=== PATIENT | female | born 1950 | race Two or more races ===

== ENCOUNTER → 2022-03-24 | Outpatient (CLI) | payer BC ==
[2022-03-24 09:22] LABS: Potassium 4.3 mmol/L (3.5-5.1)
[2022-03-24 09:31] LABS: Albumin 3.6 g/dL (3.4-5.0); Bilirubin, Total 0.3 mg/dL (0.2-1.0); Calcium 9.1 mg/dL (8.5-10.1); Total Protein 6.5 g/dL (6.4-8.2)
[2022-03-24 09:49] LABS: Urine Bacteria NONE SEEN /hpf (None Seen); Urine Blood Negative /uL (Negative); Urine Mucus FEW (None Seen); Urine Specific Gravity 1.023 (1.001-1.035); Urine WBC 22 /hpf (0 - 5); Urine WBC Clumps PRESENT /hpf (None Seen)
== END | disposition home or self-care (01) ==
LOC: LAB 08:20
PROVIDERS: ATTEND Internal Medicine
DX: N39.0 Urinary tract infection, site not specified (principal); E11.49 Type 2 diabetes mellitus with other diabetic neurological complication; E11.69 Type 2 diabetes mellitus with other specified complication
CPT/HCPCS: 36415; 80053; 81001; 87086; 87088; 87186

== ENCOUNTER → 2022-05-09 | Outpatient (CLI) | payer BC | END | disposition home or self-care (01) | LOC: LAB 10:26 | PROVIDERS: ATTEND Internal Medicine | DX: E11.69 Type 2 diabetes mellitus with other specified complication (principal); N39.0 Urinary tract infection, site not specified | CPT/HCPCS: 36415; 83036; 87086 ==

== ENCOUNTER → 2022-08-24 | Outpatient (CLI) | payer BC ==
[2022-08-24 08:24] LABS: Basophils # (auto) 0 10 ^3/uL (0-0.2); Basophils % (auto) 0.5 % (0.0-2.0); Eosinophils # (auto) 0.1 10 ^3/uL (0-0.8); Eosinophils % (auto) 1.2 % (0.0-7.0); Hematocrit 40.8 % (36.0-46.0); Hemoglobin 13.7 g/dL (12.2-16.2); Lymphocytes # (auto) 1.4 10 ^3/uL (0.4-5.4); Lymphocytes % (auto) 20.7 % (10.0-50.0); Mean Corpuscular Hemoglobin 30.9 pg (28.0-32.0); Mean Corpuscular Hgb Conc. 33.6 g/dL (32.0-36.0); Mean Corpuscular Volume 91.8 fL (80.0-100.0); Monocytes # (auto) 0.3 10 ^3/uL (0-1.3); Monocytes % (auto) 4.7 % (0.0-12.0); Neutrophils # (auto) 4.9 10 ^3/uL (1.6-8.6); Neutrophils % (auto) 72.9 % (37.0-80.0); Nucleated Red Blood Cells % 0.1 %; Red Blood Cells 4.44 10^6/uL (4.0-5.20); Red Cell Distribution Width 13.5 % (11.8-14.3); White Blood Cell 6.8 10^3/uL (4.4-10.8)
[2022-08-24 09:15] LABS: Urine Bacteria NONE SEEN /hpf (None Seen); Urine Blood Negative /uL (Negative); Urine Specific Gravity 1.013 (1.001-1.035); Urine WBC <1 /hpf (0 - 5)
[2022-08-24 09:35] LABS: Albumin 3.3 g/dL (3.4-5.0); Calcium 8.9 mg/dL (8.5-10.1); Potassium 4.4 mmol/L (3.5-5.1)
[2022-08-24 09:41] LABS: BUN/Creatinine Ratio 25.6; Bilirubin, Total 0.4 mg/dL (0.2-1.0); Total Protein 6.6 g/dL (6.4-8.2)
[2022-08-24 09:43] LABS: Free T4 (Free Thyroxine) 1.22 ng/dL (0.89-1.76)
[2022-08-24 09:44] LABS: Free T3 2.86 pg/mL (2.3-4.2)
== END | disposition home or self-care (01) ==
LOC: LAB 07:59
PROVIDERS: ATTEND Internal Medicine
DX: Z12.11 Encounter for screening for malignant neoplasm of colon (principal); E11.42 Type 2 diabetes mellitus with diabetic polyneuropathy; E78.5 Hyperlipidemia, unspecified; R53.81 Other malaise
CPT/HCPCS: 36415; 80053; 80061; 81001; 82043; 82274; 82306; 83036; 84439; 84443; 84481; 85025; 85652; 87086

== ENCOUNTER → 2022-11-03 | Outpatient (CLI) | payer BC | END | disposition home or self-care (01) | LOC: XYW 07:24 | DX: R07.9 Chest pain, unspecified (principal) | CPT/HCPCS: 93306 ==

== ENCOUNTER → 2022-11-14 | Outpatient (CLI) | payer BC ==
[~2022-11-14] VITALS: Ht 152.4 cm; Wt 68.0 kg
[~2022-11-14] MED LIST: ADENOSINE 57 MG in GIVE UN-DILUTED 0 ML IV STA
[2022-11-14 08:42] VITALS: BP 124/76
== END | disposition home or self-care (01) ==
LOC: XYW 08:07
DX: R07.9 Chest pain, unspecified (principal); R06.02 Shortness of breath; I10 Essential (primary) hypertension; E11.65 Type 2 diabetes mellitus with hyperglycemia; E78.5 Hyperlipidemia, unspecified
CPT/HCPCS: 78452; 93017; A9500; J0153

== ENCOUNTER → 2023-03-14 | Outpatient (CLI) | payer BC ==
[2023-03-14 08:52] LABS: Creatinine, Urine 124.72 mg/dL (30.0-125.0)
[2023-03-14 08:54] LABS: Albumin 4.2 g/dL (3.2-4.8); Alkaline Phosphatase 58 U/L (46-116); Anion Gap 7.1 (5-15); Aspartate Aminotransferase < 8 U/L (13-40); BUN/Creatinine Ratio 18.5 (10.0-20.0); Blood Urea Nitrogen 10 mg/dL (9-23); Calcium 9.6 mg/dL (8.5-10.1); Carbon Dioxide 26.9 mmol/L (20-30); Chloride 108 mmol/L (98-107); Glucose 102 mg/dL (74-106); Potassium 4.4 mmol/L (3.5-5.1); Sodium 142 mmol/L (136-145)
[2023-03-14 08:55] LABS: Bilirubin, Total 0.5 mg/dL (0.2-1.0); Total Protein 6.5 g/dL (5.7-8.2)
[2023-03-14 08:57] LABS: Alanine Aminotransferase < 9 U/L (7-40)
== END | disposition home or self-care (01) ==
LOC: LAB 08:15
PROVIDERS: ATTEND Internal Medicine
DX: E11.9 Type 2 diabetes mellitus without complications (principal); I10 Essential (primary) hypertension
CPT/HCPCS: 36415; 80053; 82043; 82570; 83036

== ENCOUNTER → 2023-04-12 | Outpatient (CLI) | payer BC ==
[2023-04-12 07:59] LABS: Basophils # (auto) 0 10 ^3/uL (0-0.2); Basophils % (auto) 0.8 % (0.0-2.0); Eosinophils # (auto) 0.1 10 ^3/uL (0-0.8); Eosinophils % (auto) 2.7 % (0.0-7.0); Hematocrit 40.4 % (36.0-46.0); Hemoglobin 13.5 g/dL (12.2-16.2); Lymphocytes # (auto) 1.3 10 ^3/uL (0.4-5.4); Lymphocytes % (auto) 25.5 % (10.0-50.0); Mean Corpuscular Hgb Conc. 33.5 g/dL (32.0-36.0); Mean Corpuscular Volume 92.6 fL (80.0-100.0); Monocytes # (auto) 0.3 10 ^3/uL (0-1.3); Monocytes % (auto) 5.6 % (0.0-12.0); Neutrophils # (auto) 3.3 10 ^3/uL (1.6-8.6); Neutrophils % (auto) 65.4 % (37.0-80.0); Red Blood Cells 4.36 10^6/uL (4.0-5.20); Red Cell Distribution Width 13.5 % (11.8-14.3); White Blood Cell 5.1 10^3/uL (4.4-10.8)
[2023-04-12 08:25] LABS: Albumin 4.2 g/dL (3.2-4.8); Alkaline Phosphatase 59 U/L (46-116); Anion Gap 5 (5-15); Aspartate Aminotransferase 14 U/L (13-40); BUN/Creatinine Ratio 12.1 (10.0-20.0); Bilirubin, Total 0.5 mg/dL (0.2-1.0); Blood Urea Nitrogen 7 mg/dL (9-23); Calcium 9.4 mg/dL (8.5-10.1); Carbon Dioxide 29 mmol/L (20-30); Chloride 109 mmol/L (98-107); Glucose 140 mg/dL (74-106); Potassium 4.3 mmol/L (3.5-5.1); Sodium 143 mmol/L (136-145); Total Protein 6.4 g/dL (5.7-8.2)
[2023-04-12 08:34] LABS: Alanine Aminotransferase < 9 U/L (7-40)
[2023-04-12 09:08] LABS: Erythrocyte Sedimentation Rate 7 mm/hr (0-20)
== END | disposition home or self-care (01) ==
LOC: LAB 07:47
PROVIDERS: ATTEND Internal Medicine
DX: I10 Essential (primary) hypertension (principal); R06.09 Other forms of dyspnea; E11.9 Type 2 diabetes mellitus without complications
CPT/HCPCS: 36415; 80053; 83036; 83880; 85025; 85379; 85652

== ENCOUNTER 2023-05-30 09:13 | Day surgery (SDC) | payer BC, OTHER ==
[2023-05-24 11:08] LABS: Basophils # (auto) 0.1 10 ^3/uL (0-0.2); Basophils % (auto) 1.2 % (0.0-2.0); Eosinophils # (auto) 0.1 10 ^3/uL (0-0.8); Eosinophils % (auto) 1.9 % (0.0-7.0); Hematocrit 42.1 % (36.0-46.0); Hemoglobin 13.9 g/dL (12.2-16.2); Lymphocytes # (auto) 1.7 10 ^3/uL (0.4-5.4); Lymphocytes % (auto) 29.8 % (10.0-50.0); Mean Corpuscular Hemoglobin 30.9 pg (28.0-32.0); Mean Corpuscular Hgb Conc. 33.1 g/dL (32.0-36.0); Mean Corpuscular Volume 93.5 fL (80.0-100.0); Monocytes # (auto) 0.3 10 ^3/uL (0-1.3); Monocytes % (auto) 5.8 % (0.0-12.0); Neutrophils # (auto) 3.5 10 ^3/uL (1.6-8.6); Neutrophils % (auto) 61.3 % (37.0-80.0); Nucleated Red Blood Cells % 0.1 %; Red Cell Distribution Width 13.9 % (11.8-14.3); White Blood Cell 5.6 10^3/uL (4.4-10.8)
[2023-05-24 11:16] LABS: Alanine Aminotransferase 11 U/L (7-40); Alkaline Phosphatase 71 U/L (46-116); Anion Gap 6 (5-15); BUN/Creatinine Ratio 16.7 (10.0-20.0); Blood Urea Nitrogen 10 mg/dL (9-23); Calcium 9.5 mg/dL (8.5-10.1); Carbon Dioxide 28 mmol/L (20-30); Chloride 108 mmol/L (98-107); Glucose 174 mg/dL (74-106); Potassium 4.7 mmol/L (3.5-5.1); Sodium 142 mmol/L (136-145)
[2023-05-24 11:17] LABS: Albumin 4.5 g/dL (3.2-4.8); Aspartate Aminotransferase 13 U/L (13-40); Bilirubin, Total 0.5 mg/dL (0.2-1.0); INR 0.99 (0.9-1.15); Partial Thromboplastin Time 28.9 SEC (24.5-34.5); Prothrombin Time 10.4 sec (9.3-11.8); Total Protein 6.9 g/dL (5.7-8.2)
[~2023-05-30] VITALS: Ht 152.4 cm; Wt 76.2 kg
[~2023-05-30 09:13] MED LIST changes: -ADENOSINE 57 MG in GIVE UN-DILUTED 0 ML IV STA; +ASPI1TAB20 PO; +ATOR20TA PO; +CHOLCAP4 PO; +GLYB5TAB9 PO; +LISI2.5T47 PO; +METF-372 PO; +METO-159 PO; +PIOG1TAB37 OR
[2023-05-30] MEDS ORDERED: SODIUM CHLORIDE LOCK 10 ML ONE (09:17)
[2023-05-30] MEDS ORDERED: NALOXONE HCL 0.4 MG/ML VIAL ONE (09:17)
[2023-05-30] MEDS ORDERED: FLUMAZENIL 0.1 MG/ML INJ 10ML MDV IV ONE (09:17)
[2023-05-30] MEDS ORDERED: fentaNYL CITRATE 100 MCG/2 ML VL ONE (09:18)
[2023-05-30] MEDS ORDERED: MIDAZOLAM HCL 5 MG/ML-1ML VIAL ONE (09:18)
[2023-05-30 10:04] VITALS: O2SAT 100
[2023-05-30] MEDS: diphenhdrAMINE HCL 50 MG/1 ML VL ONE ×2 (10:08→10:10)
[2023-05-30 10:25] VITALS: TEMP 97.6
[2023-05-30 11:20] VITALS: BP 124/57; PULSE 93; RESP 12; O2SAT 98
== END 2023-05-30 11:35 | disposition home or self-care (01) ==
LOC: GI 09:13
PROVIDERS: ATTEND Internal Medicine Gastroenterology
DX: K59.00 Constipation, unspecified (principal); K64.8 Other hemorrhoids; D12.0 Benign neoplasm of cecum
CPT/HCPCS: 36415; 45385; 80053; 82962; 85025; 85610; 85730; 88305; J1200; J2250; J3010; J7030

== ENCOUNTER → 2023-06-15 | Outpatient (CLI) | payer BC ==
[2023-06-15 11:34] LABS: Basophils # (auto) 0.1 10 ^3/uL (0-0.2); Basophils % (auto) 1.1 % (0.0-2.0); Eosinophils # (auto) 0.1 10 ^3/uL (0-0.8); Eosinophils % (auto) 1.3 % (0.0-7.0); Hematocrit 40.8 % (36.0-46.0); Hemoglobin 13.5 g/dL (12.2-16.2); Lymphocytes # (auto) 1.9 10 ^3/uL (0.4-5.4); Lymphocytes % (auto) 31.3 % (10.0-50.0); Mean Corpuscular Hemoglobin 31.1 pg (28.0-32.0); Mean Corpuscular Hgb Conc. 33.1 g/dL (32.0-36.0); Monocytes # (auto) 0.3 10 ^3/uL (0-1.3); Monocytes % (auto) 4.8 % (0.0-12.0); Neutrophils # (auto) 3.8 10 ^3/uL (1.6-8.6); Neutrophils % (auto) 61.5 % (37.0-80.0); Red Blood Cells 4.34 10^6/uL (4.0-5.20); Red Cell Distribution Width 13.7 % (11.8-14.3); White Blood Cell 6.2 10^3/uL (4.4-10.8)
[2023-06-15 12:05] LABS: Albumin 4.4 g/dL (3.2-4.8); Alkaline Phosphatase 74 U/L (46-116); Anion Gap 7 (5-15); Aspartate Aminotransferase 12 U/L (13-40); BUN/Creatinine Ratio 15.1 (10.0-20.0); Bilirubin, Total 0.5 mg/dL (0.2-1.0); Blood Urea Nitrogen 8 mg/dL (9-23); Calcium 9.2 mg/dL (8.7-10.4); Carbon Dioxide 27 mmol/L (20-30); Chloride 106 mmol/L (98-107); Glucose 105 mg/dL (74-106); Sodium 140 mmol/L (136-145)
[2023-06-15 12:06] LABS: Alanine Aminotransferase < 9 U/L (7-40); Total Protein 6.8 g/dL (5.7-8.2)
== END | disposition home or self-care (01) ==
LOC: LAB 11:11
PROVIDERS: ATTEND Internal Medicine
DX: R30.0 Dysuria (principal); Z98.890 Other specified postprocedural states
CPT/HCPCS: 36415; 80053; 85025; 87086; 87088; 87186

== ENCOUNTER 2023-09-06 07:55 | Inpatient (IN) | payer BC ==
[2023-09-04 14:38] LABS: Basophils # (auto) 0.1 10 ^3/uL (0-0.2); Eosinophils # (auto) 0.1 10 ^3/uL (0-0.8); Eosinophils % (auto) 1.5 % (0.0-7.0); Hematocrit 39.7 % (36.0-46.0); Hemoglobin 13.3 g/dL (12.2-16.2); Lymphocytes # (auto) 1.8 10 ^3/uL (0.4-5.4); Lymphocytes % (auto) 25.5 % (10.0-50.0); Mean Corpuscular Hgb Conc. 33.5 g/dL (32.0-36.0); Mean Corpuscular Volume 92.5 fL (80.0-100.0); Monocytes # (auto) 0.4 10 ^3/uL (0-1.3); Monocytes % (auto) 6.4 % (0.0-12.0); Neutrophils # (auto) 4.5 10 ^3/uL (1.6-8.6); Neutrophils % (auto) 65.6 % (37.0-80.0); Nucleated Red Blood Cells % 0.1 %; Red Blood Cells 4.29 10^6/uL (4.0-5.20); Red Cell Distribution Width 13.9 % (11.8-14.3); White Blood Cell 6.9 10^3/uL (4.4-10.8)
[2023-09-04 15:05] LABS: Partial Thromboplastin Time 27.8 SEC (24.5-34.5); Prothrombin Time 10.5 sec (9.3-11.8)
[2023-09-04 15:10] LABS: Alanine Aminotransferase 10 U/L (7-40); Albumin 4.3 g/dL (3.2-4.8); Alkaline Phosphatase 73 U/L (46-116); Anion Gap 6 (5-15); Aspartate Aminotransferase 12 U/L (13-40); BUN/Creatinine Ratio 14.1 (10.0-20.0); Bilirubin, Total 0.4 mg/dL (0.2-1.0); Blood Urea Nitrogen 9 mg/dL (9-23); Calcium 9.6 mg/dL (8.5-10.1); Carbon Dioxide 29 mmol/L (20-30); Chloride 108 mmol/L (98-107); Glucose 208 mg/dL (74-106); Potassium 4.1 mmol/L (3.5-5.1); Sodium 143 mmol/L (136-145); Total Protein 6.7 g/dL (5.7-8.2)
[~2023-09-06] VITALS: Ht 152.4 cm; Wt 75.6 kg
[2023-09-06] VITALS (16 sets, daily range): BP systolic 120–147; BP diastolic 63–89; PULSE 87–113; RESP 12–20; TEMP 98–98.2; O2SAT 94–99
[~2023-09-06 07:55] MED LIST changes: -CHOLCAP4 PO; +CINN500T PO; +LISI-275 PO; -LISI2.5T47 PO
[2023-09-06] MEDS: LIDOCAINE 2%HCL (LOCAL ANESTH.) INJ 20ML MDV ONE ×2 (09:08→11:52)
[2023-09-06] MEDS: IODIXANOL 320MG/ML 100ML BTL IV ONE ×4 (09:08→11:51)
[2023-09-06] MEDS: ANGIOMAX 250 MG VIAL IV ONE ×4 (09:10→12:04)
[2023-09-06] MEDS: fentaNYL CITRATE 100 MCG/2 ML VL ONE ×3 (09:10→11:46)
[2023-09-06] MEDS: MIDAZOLAM HCL 2MG/2ML 2ml VIAL (1mg/ml) ONE ×3 (09:11→11:46)
[2023-09-06] MEDS: SODIUM CHL 0.9% 50 ML ONE ×3 (09:11→11:48)
[2023-09-06] MEDS: ONDANSETRON HCL 4 MG/2 ML VIAL ONE ×3 (10:21→12:50)
[2023-09-06] MEDS: CLOPIDOGREL 300 MG TAB ONE ×2 (10:59→11:01)
[2023-09-06] MEDS: NITROGLYCERIN 0.4 MG SL TAB SL ONE (11:25)
[2023-09-06] MEDS: NITROGLYCERIN 0.4 MG SL TAB SL PRN (11:28)
[2023-09-06] MEDS: HYDROmorphone HCL 2 MG/ML VL/or syr ONE (12:49)
[2023-09-06] MEDS ORDERED: NITROGLYCERIN 0.4 MG SL TAB SL PRN (15:15)
[2023-09-06] MEDS ORDERED: MORPHINE SULFATE INJ 2 MG/ml SYRG IV PRN (15:15)
[2023-09-06] MEDS ORDERED: ONDANSETRON HCL 4 MG/2 ML VIAL IV PRN (15:30)
[2023-09-06] MEDS ORDERED: DEXTROSE (50%) 50ML SYRG IV PRN (15:30)
[2023-09-06] MEDS ORDERED: ACETAMINOPHEN 500 MG TAB PO PRN (15:30)
[2023-09-06] MEDS: InsuLIN REG 1unit/0.01ml Soln (100units/ml) SC SCH (17:00)
[2023-09-06] MEDS: ACCU-CHEK COMFORT CURVE STRIP VI SCH (17:10)
[2023-09-06] MEDS: ONDANSETRON HCL 4 MG/2 ML VIAL IV PRN (17:26)
[2023-09-06] MEDS: ATORVASTATIN 20 MG TAB PO SCH (21:44)
[2023-09-06] MEDS: METOPROLOL TARTRATE 25 MG TAB PO SCH (21:45)
[2023-09-07 05:00] VITALS: BP 118/75; PULSE 92; RESP 20; TEMP 97.7; O2SAT 99
[2023-09-07 07:28] LABS: Basophils # (auto) 0 10 ^3/uL (0-0.2); Basophils % (auto) 0.2 % (0.0-2.0); Eosinophils # (auto) 0 10 ^3/uL (0-0.8); Hemoglobin 13.1 g/dL (12.2-16.2); Lymphocytes # (auto) 1.2 10 ^3/uL (0.4-5.4); Lymphocytes % (auto) 9.6 % (10.0-50.0); Mean Corpuscular Hemoglobin 30.3 pg (28.0-32.0); Mean Corpuscular Hgb Conc. 32.8 g/dL (32.0-36.0); Mean Corpuscular Volume 92.2 fL (80.0-100.0); Monocytes # (auto) 0.8 10 ^3/uL (0-1.3); Monocytes % (auto) 6.8 % (0.0-12.0); Neutrophils # (auto) 10.3 10 ^3/uL (1.6-8.6); Neutrophils % (auto) 83.4 % (37.0-80.0); Red Blood Cells 4.34 10^6/uL (4.0-5.20); Red Cell Distribution Width 13.6 % (11.8-14.3); White Blood Cell 12.3 10^3/uL (4.4-10.8)
[2023-09-07 07:36] LABS: Alanine Aminotransferase 28 U/L (7-40); Albumin 4.1 g/dL (3.2-4.8); Alkaline Phosphatase 70 U/L (46-116); Anion Gap 8 (5-15); Aspartate Aminotransferase 246 U/L (13-40); BUN/Creatinine Ratio 22.4 (10.0-20.0); Blood Urea Nitrogen 13 mg/dL (9-23); Calcium 9.3 mg/dL (8.7-10.4); Carbon Dioxide 24 mmol/L (20-30); Chloride 105 mmol/L (98-107); Glucose 227 mg/dL (74-106); Potassium 3.9 mmol/L (3.5-5.1); Sodium 137 mmol/L (136-145); Total Protein 6.3 g/dL (5.7-8.2)
[2023-09-07 07:37] LABS: Bilirubin, Total 0.8 mg/dL (0.2-1.0)
[2023-09-07 07:41] LABS: Urine Bacteria NONE SEEN /hpf (None Seen); Urine Blood Negative /uL (Negative); Urine Clarity Clear (Clear); Urine Color Yellow (Yellow); Urine Mucus FEW (None Seen); Urine Protein, UAD 1+ (Negative); Urine Urobilinogen Normal (Negative); Urine WBC 5 /hpf (0 - 5)
[2023-09-07 07:55] LABS: Urine Specific Gravity > 1.050 (1.001-1.035)
[2023-09-07 08:00] VITALS: BP 122/76; PULSE 106; PULSE 94; PULSE 95; RESP 18; RESP 20; TEMP 97.9; O2SAT 96; O2SAT 98
[2023-09-07] MEDS: CLOPIDOGREL BISULFATE 75 MG TAB PO SCH (09:09)
[2023-09-07] MEDS: ASPirin 81 mg TAB PO SCH (09:09)
[2023-09-07] MEDS: InsuLIN REG 1unit/0.01ml Soln (100units/ml) SC SCH ×2 (11:30→21:26)
[2023-09-07] MEDS ORDERED: DEXTROSE (50%) 50ML SYRG IV PRN (11:30)
[2023-09-07] MEDS: ACCU-CHEK COMFORT CURVE STRIP VI SCH (11:30)
[2023-09-07 13:00] VITALS: BP 102/63; PULSE 81; RESP 18; TEMP 98; O2SAT 96
[2023-09-07 16:44] VITALS: BP 101/62; PULSE 101; RESP 18; TEMP 98.4; O2SAT 96
[2023-09-07] MEDS: KETOROLAC TROMETH 30 MG/ML 1ML VIAL IV ONE (18:41)
[2023-09-07] MEDS: ISOSORBIDE MONONITRATE ER 60 MG TAB PO ONE (18:41)
[2023-09-07 20:00] VITALS: PULSE 105; PULSE 108; RESP 18; O2SAT 92
[2023-09-07 22:01] VITALS: BP 111/64; PULSE 108; RESP 18; TEMP 98.1; O2SAT 92
[2023-09-08 05:23] VITALS: BP 106/58; PULSE 94; RESP 18; TEMP 98.7; O2SAT 95
[2023-09-08 07:06] LABS: Basophils # (auto) 0 10 ^3/uL (0-0.2); Basophils % (auto) 0.3 % (0.0-2.0); Eosinophils # (auto) 0 10 ^3/uL (0-0.8); Eosinophils % (auto) 0.5 % (0.0-7.0); Hematocrit 37.9 % (36.0-46.0); Hemoglobin 12.9 g/dL (12.2-16.2); Lymphocytes # (auto) 1.3 10 ^3/uL (0.4-5.4); Mean Corpuscular Hemoglobin 31.3 pg (28.0-32.0); Mean Corpuscular Volume 91.9 fL (80.0-100.0); Monocytes # (auto) 0.6 10 ^3/uL (0-1.3); Monocytes % (auto) 6.5 % (0.0-12.0); Neutrophils % (auto) 77.7 % (37.0-80.0); Red Blood Cells 4.13 10^6/uL (4.0-5.20); Red Cell Distribution Width 13.4 % (11.8-14.3); White Blood Cell 8.9 10^3/uL (4.4-10.8)
[2023-09-08 07:09] LABS: Chloride 105 mmol/L (98-107); Potassium 3.6 mmol/L (3.5-5.1); Sodium 139 mmol/L (136-145)
[2023-09-08 07:10] LABS: Anion Gap 8 (5-15); Calcium 9.3 mg/dL (8.5-10.1); Carbon Dioxide 26 mmol/L (20-30)
[2023-09-08 07:15] LABS: Glucose 177 mg/dL (74-106)
[2023-09-08 07:16] LABS: BUN/Creatinine Ratio 21.2 (10.0-20.0); Blood Urea Nitrogen 11 mg/dL (9-23)
[2023-09-08 08:00] VITALS: PULSE 96; PULSE 98; RESP 19; O2SAT 95
[2023-09-08 09:00] VITALS: BP 106/79; PULSE 96; RESP 19; TEMP 98.1; O2SAT 95
[2023-09-08] MEDS ORDERED: CLOP75TA70 PO (12:23)
[2023-09-08] MEDS ORDERED: ATOR-47 PO (12:23)
[2023-09-08] MEDS ORDERED: ASPI1TAB20 PO (12:23)
[2023-09-08 14:02] VITALS: BP 111/60; PULSE 98; RESP 20; TEMP 98.1; O2SAT 97
[2023-09-08] MEDS ORDERED: ISOSORBIDE MONONITRATE ER 60 MG TAB PO SCH (22:00)
== END 2023-09-08 15:13 | disposition home or self-care (01) | DRG 251 ==
LOC: CATH 07:55 → TELE 15:05 → TELE-WESTW 17:49
PROVIDERS: ADMIT Internal Medicine; ATTEND Internal Medicine
PROC: 02703ZZ Dilation of Coronary Artery, One Artery, Percutaneous Approach (ICD-10-PCS; principal; 2023-09-06)
PROC: 02C03Z7 Extirpation of Matter from Coronary Artery, One Artery, Orbital Atherectomy Technique, Percutaneous Approach (ICD-10-PCS; 2023-09-06)
PROC: 4A023N7 Measurement of Cardiac Sampling and Pressure, Left Heart, Percutaneous Approach (ICD-10-PCS; 2023-09-06)
PROC: B240ZZ3 Ultrasonography of Single Coronary Artery, Intravascular (ICD-10-PCS; 2023-09-06)
PROC: B211YZZ Fluoroscopy of Multiple Coronary Arteries using Other Contrast (ICD-10-PCS; 2023-09-06)
PROC: B215YZZ Fluoroscopy of Left Heart using Other Contrast (ICD-10-PCS; 2023-09-06)
DX: T82.855A Stenosis of coronary artery stent, initial encounter (principal); I25.10 Atherosclerotic heart disease of native coronary artery without angina pectoris; E78.5 Hyperlipidemia, unspecified; E11.9 Type 2 diabetes mellitus without complications; I10 Essential (primary) hypertension; E66.9 Obesity, unspecified; Y83.8 Other surgical procedures as the cause of abnormal reaction of the patient, or of later complication, without mention of misadventure at the time of the procedure; Z68.32 Body mass index [BMI] 32.0-32.9, adult; Y92.89 Other specified places as the place of occurrence of the external cause
CPT/HCPCS: 36415; 71045; 80048; 80053; 81001; 82962; 83036; 84443; 85025; 85610; 85730; 99152; 99153; C1724; C1769; C1874; G0378; J1815; J1885; J2250; J2405; Q9967

== ENCOUNTER 2023-09-15 12:51 | Inpatient (IN) | payer BC ==
[2023-09-15] VITALS (25 sets, daily range): BP systolic 95–123; BP diastolic 42–72; PULSE 85–113; RESP 14–16; TEMP 98–98.3; O2SAT 94–99
[~2023-09-15] VITALS: Ht 152.4 cm; Wt 66.7 kg
[~2023-09-15 12:51] MED LIST changes: +ATOR-47 PO; -ATOR20TA PO; +CLOP75TA70 PO
[2023-09-15 13:44] LABS: Basophils # (auto) 0.1 10 ^3/uL (0-0.2); Basophils % (auto) 0.8 % (0.0-2.0); Eosinophils # (auto) 0.1 10 ^3/uL (0-0.8); Eosinophils % (auto) 0.8 % (0.0-7.0); Hemoglobin 13.2 g/dL (12.2-16.2); Lymphocytes # (auto) 1.5 10 ^3/uL (0.4-5.4); Lymphocytes % (auto) 20.6 % (10.0-50.0); Mean Corpuscular Hemoglobin 30.9 pg (28.0-32.0); Mean Corpuscular Hgb Conc. 33.1 g/dL (32.0-36.0); Mean Corpuscular Volume 93.4 fL (80.0-100.0); Monocytes # (auto) 0.4 10 ^3/uL (0-1.3); Monocytes % (auto) 5.7 % (0.0-12.0); Neutrophils # (auto) 5.2 10 ^3/uL (1.6-8.6); Neutrophils % (auto) 72.1 % (37.0-80.0); Red Blood Cells 4.28 10^6/uL (4.0-5.20); Red Cell Distribution Width 13.6 % (11.8-14.3); White Blood Cell 7.2 10^3/uL (4.4-10.8)
[2023-09-15 14:05] LABS: Partial Thromboplastin Time 29.1 SEC (24.5-34.5); Prothrombin Time 10.5 sec (9.3-11.8)
[2023-09-15 14:10] LABS: Alkaline Phosphatase 83 U/L (46-116); Anion Gap 8 (5-15); Aspartate Aminotransferase 17 U/L (13-40); BUN/Creatinine Ratio 18.2 (10.0-20.0); Blood Urea Nitrogen 10 mg/dL (9-23); Calcium 9.2 mg/dL (8.7-10.4); Carbon Dioxide 25 mmol/L (20-30); Chloride 104 mmol/L (98-107); Glucose 195 mg/dL (74-106); Magnesium 1.6 mg/dL (1.6-2.6); Potassium 4.1 mmol/L (3.5-5.1); Sodium 137 mmol/L (136-145)
[2023-09-15 14:11] LABS: Albumin 4.4 g/dL (3.2-4.8); Bilirubin, Total 0.3 mg/dL (0.2-1.0); Total Protein 7.1 g/dL (5.7-8.2)
[2023-09-15 14:12] LABS: Alanine Aminotransferase 9 U/L (7-40)
[2023-09-15] MEDS: HEPARIN SODIUM (PORCINE) 5000 UNITS/ML 1ML VIAL IV ONE (14:21)
[2023-09-15] MEDS ORDERED: DEXTROSE (50%) 50ML SYRG IV PRN (14:45)
[2023-09-15] MEDS ORDERED: NITROGLYCERIN 0.4 MG SL TAB SL PRN (14:45)
[2023-09-15] MEDS ORDERED: MORPHINE SULFATE INJ 2 MG/ml SYRG IV PRN (14:45)
[2023-09-15] MEDS: HEPARIN DRIP/D5W 100UNITS/ML 250 ML IV SCH (14:45)
[2023-09-15] MEDS: NITROGLYCERIN 50MG/250ML 250 ML IV ONE (15:06)
[2023-09-15] MEDS: LIDOCAINE 2%HCL (LOCAL ANESTH.) INJ 20ML MDV ONE (16:53)
[2023-09-15] MEDS: IODIXANOL 320MG/ML 100ML BTL IV ONE ×2 (16:53→17:49)
[2023-09-15] MEDS: InsuLIN REG 1unit/0.01ml Soln (100units/ml) SC SCH (17:00)
[2023-09-15] MEDS: ACCU-CHEK COMFORT CURVE STRIP VI SCH (17:00)
[2023-09-15] MEDS: VERAPAMIL 2.5MG/ML INJ 2ML VIAL IV ONE (17:27)
[2023-09-15] MEDS: MIDAZOLAM HCL 2MG/2ML 2ml VIAL (1mg/ml) ONE (17:27)
[2023-09-15] MEDS: fentaNYL CITRATE 100 MCG/2 ML VL ONE (17:27)
[2023-09-15] MEDS: ANGIOMAX 250 MG VIAL IV ONE (17:28)
[2023-09-15] MEDS: SODIUM CHL 0.9% 50 ML ONE (17:28)
[2023-09-15] MEDS ORDERED: PATIENTS OWN MEDICATION (Atorvastatin Calcium 1 TAB) PO SCH (22:00)
[2023-09-15] MEDS: METOPROLOL TARTRATE 25 MG TAB PO SCH (23:09)
[2023-09-16] VITALS (80 sets, daily range): BP systolic 92–142; BP diastolic 36–77; PULSE 87–117; RESP 11–27; TEMP 98.1–98.7; O2SAT 93–98
[2023-09-16 02:03] LABS: INR 1.07 (0.9-1.15); Partial Thromboplastin Time 54.1 SEC (24.5-34.5); Prothrombin Time 11.2 sec (9.3-11.8)
[2023-09-16 02:29] LABS: Albumin 3.8 g/dL (3.2-4.8); Alkaline Phosphatase 67 U/L (46-116); Anion Gap 7 (5-15); Aspartate Aminotransferase 15 U/L (13-40); BUN/Creatinine Ratio 16.3 (10.0-20.0); Bilirubin, Total 0.5 mg/dL (0.2-1.0); Blood Urea Nitrogen 7 mg/dL (9-23); Calcium 8.8 mg/dL (8.7-10.4); Carbon Dioxide 25 mmol/L (20-30); Chloride 107 mmol/L (98-107); Glucose 121 mg/dL (74-106); Potassium 3.7 mmol/L (3.5-5.1); Sodium 139 mmol/L (136-145); Total Protein 6.1 g/dL (5.7-8.2)
[2023-09-16 02:46] LABS: Basophils # (auto) 0 10 ^3/uL (0-0.2); Basophils % (auto) 0.6 % (0.0-2.0); Eosinophils # (auto) 0.1 10 ^3/uL (0-0.8); Eosinophils % (auto) 0.8 % (0.0-7.0); Hematocrit 37.3 % (36.0-46.0); Hemoglobin 12.3 g/dL (12.2-16.2); Lymphocytes # (auto) 1.3 10 ^3/uL (0.4-5.4); Lymphocytes % (auto) 20.4 % (10.0-50.0); Mean Corpuscular Hemoglobin 30.4 pg (28.0-32.0); Mean Corpuscular Hgb Conc. 32.9 g/dL (32.0-36.0); Mean Corpuscular Volume 92.6 fL (80.0-100.0); Monocytes # (auto) 0.4 10 ^3/uL (0-1.3); Monocytes % (auto) 6.5 % (0.0-12.0); Neutrophils # (auto) 4.7 10 ^3/uL (1.6-8.6); Neutrophils % (auto) 71.7 % (37.0-80.0); Red Blood Cells 4.03 10^6/uL (4.0-5.20); Red Cell Distribution Width 13.3 % (11.8-14.3); White Blood Cell 6.6 10^3/uL (4.4-10.8)
[2023-09-16 02:55] LABS: Alanine Aminotransferase < 9 U/L (7-40)
[2023-09-16 08:03] LABS: INR 1.07 (0.9-1.15); Prothrombin Time 11.2 sec (9.3-11.8)
[2023-09-16] MEDS: ASPirin-EC 81 mg tab PO SCH (08:20)
[2023-09-16] MEDS: CLOPIDOGREL BISULFATE 75 MG TAB PO SCH (08:20)
[2023-09-16 14:02] LABS: INR 1.05 (0.9-1.15); Partial Thromboplastin Time 48.1 SEC (24.5-34.5)
[2023-09-16] MEDS: HEPARIN DRIP/D5W 100UNITS/ML 250 ML IV SCH (14:30)
[2023-09-16] MEDS: ISOSORBIDE MONONITRATE 20 MG TAB PO SCH (21:14)
[2023-09-17] VITALS (10 sets, daily range): BP systolic 99–126; BP diastolic 54–69; PULSE 76–105; RESP 18–20; TEMP 97.6–98.6; O2SAT 91–99
[2023-09-17 07:10] LABS: Anion Gap 5 (5-15); Carbon Dioxide 27 mmol/L (20-30); Chloride 107 mmol/L (98-107); Potassium 3.9 mmol/L (3.5-5.1); Sodium 139 mmol/L (136-145)
[2023-09-17 07:11] LABS: Calcium 9.8 mg/dL (8.5-10.1)
[2023-09-17 07:16] LABS: BUN/Creatinine Ratio 15.5 (10.0-20.0); Basophils # (auto) 0 10 ^3/uL (0-0.2); Basophils % (auto) 0.6 % (0.0-2.0); Blood Urea Nitrogen 9 mg/dL (9-23); Eosinophils # (auto) 0.1 10 ^3/uL (0-0.8); Eosinophils % (auto) 1.5 % (0.0-7.0); Glucose 151 mg/dL (74-106); Hematocrit 38.7 % (36.0-46.0); Hemoglobin 12.8 g/dL (12.2-16.2); Lymphocytes # (auto) 1.6 10 ^3/uL (0.4-5.4); Lymphocytes % (auto) 25.1 % (10.0-50.0); Mean Corpuscular Hemoglobin 30.7 pg (28.0-32.0); Mean Corpuscular Volume 92.9 fL (80.0-100.0); Monocytes # (auto) 0.5 10 ^3/uL (0-1.3); Monocytes % (auto) 8.5 % (0.0-12.0); Neutrophils % (auto) 64.3 % (37.0-80.0); Nucleated Red Blood Cells % 0.1 %; Red Blood Cells 4.17 10^6/uL (4.0-5.20); Red Cell Distribution Width 13.7 % (11.8-14.3); White Blood Cell 6.3 10^3/uL (4.4-10.8)
[2023-09-17] MEDS: ENOXAPARIN SOD 40 MG/0.4 ML SYRINGE SC SCH (10:09)
[2023-09-17] MEDS: METOPROLOL TARTRATE 25 MG TAB PO ONE (14:18)
[2023-09-17] MEDS: METOPROLOL TARTRATE 25 MG TAB PO SCH (21:34)
[2023-09-18 05:00] VITALS: BP 117/72; PULSE 97; RESP 18; TEMP 97.6; O2SAT 96
[2023-09-18 08:00] VITALS: PULSE 88; PULSE 97; RESP 17; O2SAT 97
[2023-09-18 09:00] VITALS: BP 107/68; PULSE 88; RESP 17; TEMP 98.2; O2SAT 97
[2023-09-18] MEDS: ISOSORBIDE MONONITRATE ER 60 MG TAB PO SCH (09:28)
[2023-09-18 12:55] VITALS: BP 103/61; PULSE 89; RESP 16; TEMP 98; O2SAT 97
[2023-09-18 15:37] VITALS: BP 102/69; PULSE 86; RESP 16; TEMP 98.2; O2SAT 96
[2023-09-18] MEDS ORDERED: ATORVASTATIN 20 MG TAB PO SCH (22:00)
== END 2023-09-18 16:30 | disposition home or self-care (01) | DRG 280 ==
LOC: ER 12:51 → TELE 14:39 → ICU WEST 19:41 → TELE-CENTR 09-16 18:14
PROVIDERS: ADMIT Nurse Practitioner Acute Care; ATTEND Internal Medicine Geriatric Medicine
PROC: B211YZZ Fluoroscopy of Multiple Coronary Arteries using Other Contrast (ICD-10-PCS; principal; 2023-09-15)
PROC: 4A023N7 Measurement of Cardiac Sampling and Pressure, Left Heart, Percutaneous Approach (ICD-10-PCS; 2023-09-15)
PROC: B54CZZA Ultrasonography of Left Lower Extremity Veins, Guidance (ICD-10-PCS; 2023-09-15)
PROC: 02JA3ZZ Inspection of Heart, Percutaneous Approach (ICD-10-PCS; 2023-09-15)
DX: I25.10 Atherosclerotic heart disease of native coronary artery without angina pectoris (principal); I21.4 Non-ST elevation (NSTEMI) myocardial infarction; I25.42 Coronary artery dissection; I50.41 Acute combined systolic (congestive) and diastolic (congestive) heart failure; E66.9 Obesity, unspecified; E78.5 Hyperlipidemia, unspecified; I11.0 Hypertensive heart disease with heart failure; E11.9 Type 2 diabetes mellitus without complications; Z95.5 Presence of coronary angioplasty implant and graft; Z79.84 Long term (current) use of oral hypoglycemic drugs; Z79.82 Long term (current) use of aspirin; Z79.899 Other long term (current) drug therapy; Z83.3 Family history of diabetes mellitus; Z82.49 Family history of ischemic heart disease and other diseases of the circulatory system; Z68.28 Body mass index [BMI] 28.0-28.9, adult; Y92.89 Other specified places as the place of occurrence of the external cause
CPT/HCPCS: 36415; 71045; 80048; 80053; 82962; 83735; 83880; 84484; 85025; 85610; 85730; 87081; 93005; 93306; 93458; 96365; 96368; 99152; 99291; G0378; J1815; J2250; Q9967

== ENCOUNTER → 2024-01-02 | Outpatient (CLI) | payer BC ==
[~2024-01-02] MED LIST changes: -LISI-275 PO
[2024-01-02 08:05] LABS: Basophils # (auto) 0.1 10 ^3/uL (0-0.2); Eosinophils # (auto) 0.1 10 ^3/uL (0-0.8); Eosinophils % (auto) 1.8 % (0.0-7.0); Hematocrit 41.5 % (36.0-46.0); Hemoglobin 13.6 g/dL (12.2-16.2); Lymphocytes # (auto) 1.7 10 ^3/uL (0.4-5.4); Lymphocytes % (auto) 25.2 % (10.0-50.0); Mean Corpuscular Hemoglobin 28.9 pg (28.0-32.0); Mean Corpuscular Hgb Conc. 32.7 g/dL (32.0-36.0); Mean Corpuscular Volume 88.5 fL (80.0-100.0); Monocytes # (auto) 0.4 10 ^3/uL (0-1.3); Monocytes % (auto) 5.4 % (0.0-12.0); Neutrophils # (auto) 4.4 10 ^3/uL (1.6-8.6); Neutrophils % (auto) 66.6 % (37.0-80.0); Red Blood Cells 4.68 10^6/uL (4.0-5.20); White Blood Cell 6.6 10^3/uL (4.4-10.8)
[2024-01-02 08:55] LABS: Alanine Aminotransferase 10 U/L (7-40); Albumin 4.2 g/dL (3.2-4.8); Alkaline Phosphatase 89 U/L (46-116); Anion Gap 9 (5-15); Aspartate Aminotransferase 9 U/L (13-40); BUN/Creatinine Ratio 13.7 (10.0-20.0); Bilirubin, Total 0.4 mg/dL (0.2-1.0); Blood Urea Nitrogen 7 mg/dL (9-23); Calcium 9.5 mg/dL (8.5-10.1); Carbon Dioxide 25 mmol/L (20-30); Chloride 107 mmol/L (98-107); Cholesterol 132 mg/dL (< 200); Glucose 176 mg/dL (74-106); HDL Cholesterol 46 mg/dL (40-59); LDL Cholesterol 69 mg/dL (< 100); Potassium 3.7 mmol/L (3.5-5.1); Sodium 141 mmol/L (136-145); Total Protein 6.4 g/dL (5.7-8.2); Triglycerides 117 mg/dL (< 150)
== END | disposition home or self-care (01) ==
LOC: LAB 07:38
PROVIDERS: ATTEND Internal Medicine
DX: E11.9 Type 2 diabetes mellitus without complications (principal); I25.10 Atherosclerotic heart disease of native coronary artery without angina pectoris
CPT/HCPCS: 36415; 80053; 80061; 83036; 85025

== ENCOUNTER → 2024-01-22 | Outpatient (CLI) | payer BC | END | disposition home or self-care (01) | LOC: Rad HDHVI 08:46 | PROVIDERS: ATTEND Internal Medicine Cardiovascular Disease | DX: R25.2 Cramp and spasm (principal) | CPT/HCPCS: 93925 ==

== ENCOUNTER → 2024-01-31 | Outpatient (CLI) | payer BC ==
[~2024-01-31] VITALS: Ht 152.4 cm; Wt 64.0 kg
== END | disposition home or self-care (01) ==
LOC: Rad HDHVI 09:05
PROVIDERS: ATTEND Internal Medicine Cardiovascular Disease
DX: I25.110 Atherosclerotic heart disease of native coronary artery with unstable angina pectoris (principal); R07.89 Other chest pain; I10 Essential (primary) hypertension; E78.5 Hyperlipidemia, unspecified; E11.69 Type 2 diabetes mellitus with other specified complication; I25.5 Ischemic cardiomyopathy; R06.02 Shortness of breath; Z82.49 Family history of ischemic heart disease and other diseases of the circulatory system
CPT/HCPCS: 78452; 93017; 96374; A9500

== ENCOUNTER → 2024-02-20 | Outpatient (CLI) | payer BC ==
[2024-02-20 08:21] LABS: Basophils # (auto) 0 10 ^3/uL (0-0.2); Basophils % (auto) 0.7 % (0.0-2.0); Eosinophils # (auto) 0.1 10 ^3/uL (0-0.8); Eosinophils % (auto) 1.5 % (0.0-7.0); Hemoglobin 13.8 g/dL (12.2-16.2); Lymphocytes # (auto) 1.8 10 ^3/uL (0.4-5.4); Lymphocytes % (auto) 26.2 % (10.0-50.0); Mean Corpuscular Hemoglobin 28.1 pg (28.0-32.0); Mean Corpuscular Hgb Conc. 32.8 g/dL (32.0-36.0); Mean Corpuscular Volume 85.6 fL (80.0-100.0); Monocytes # (auto) 0.4 10 ^3/uL (0-1.3); Monocytes % (auto) 5.6 % (0.0-12.0); Neutrophils # (auto) 4.5 10 ^3/uL (1.6-8.6); Red Blood Cells 4.91 10^6/uL (4.0-5.20); Red Cell Distribution Width 15.4 % (11.8-14.3); White Blood Cell 6.8 10^3/uL (4.4-10.8)
== END | disposition home or self-care (01) ==
LOC: LAB 07:48
PROVIDERS: ATTEND Internal Medicine
DX: K63.5 Polyp of colon (principal)
CPT/HCPCS: 36415; 85025

== ENCOUNTER 2024-03-03 09:14 | Emergency (ER) | payer BC ==
[~2024-03-03] VITALS: Ht 152.4 cm; Wt 62.1 kg
[2024-03-03 11:06] VITALS: BP 107/54; TEMP 97.8
[2024-03-03 11:08] VITALS: PULSE 84; RESP 16; O2SAT 97
== END 2024-03-03 10:48 | disposition home or self-care (01) ==
LOC: ER 09:14
DX: S09.90XA Unspecified injury of head, initial encounter (principal); I25.10 Atherosclerotic heart disease of native coronary artery without angina pectoris; E11.9 Type 2 diabetes mellitus without complications; I10 Essential (primary) hypertension; Z90.49 Acquired absence of other specified parts of digestive tract; Z98.51 Tubal ligation status; Z79.84 Long term (current) use of oral hypoglycemic drugs; Z79.899 Other long term (current) drug therapy; W18.39XA Other fall on same level, initial encounter; Y93.89 Activity, other specified; Y92.89 Other specified places as the place of occurrence of the external cause; Y99.8 Other external cause status
CPT/HCPCS: 70450; 70486

== ENCOUNTER → 2024-04-19 | Outpatient (CLI) | payer BC ==
[2024-04-19 08:29] LABS: Basophils # (auto) 0.1 10 ^3/uL (0-0.2); Basophils % (auto) 0.8 % (0.0-2.0); Eosinophils # (auto) 0.1 10 ^3/uL (0-0.8); Eosinophils % (auto) 1.5 % (0.0-7.0); Hematocrit 41.5 % (36.0-46.0); Hemoglobin 13.7 g/dL (12.2-16.2); Lymphocytes # (auto) 1.7 10 ^3/uL (0.4-5.4); Lymphocytes % (auto) 23.3 % (10.0-50.0); Mean Corpuscular Hemoglobin 28.4 pg (28.0-32.0); Mean Corpuscular Hgb Conc. 33.1 g/dL (32.0-36.0); Mean Corpuscular Volume 85.9 fL (80.0-100.0); Monocytes # (auto) 0.4 10 ^3/uL (0-1.3); Neutrophils % (auto) 69.4 % (37.0-80.0); Nucleated Red Blood Cells % 0.1 %; Platelet Count (auto) 228 10^3/uL (140-450); Red Blood Cells 4.84 10^6/uL (4.0-5.20); Red Cell Distribution Width 16.4 % (11.8-14.3); White Blood Cell 7.2 10^3/uL (4.4-10.8)
[2024-04-19 09:25] LABS: Albumin 4.3 g/dL (3.2-4.8); Alkaline Phosphatase 97 U/L (46-116); Anion Gap 8 (5-15); Aspartate Aminotransferase 10 U/L (13-40); BUN/Creatinine Ratio 10.7 (10.0-20.0); Bilirubin, Total 0.6 mg/dL (0.2-1.0); Blood Urea Nitrogen 6 mg/dL (9-23); Carbon Dioxide 28 mmol/L (20-31); Chloride 108 mmol/L (98-107); Glucose 136 mg/dL (74-106); Potassium 3.9 mmol/L (3.5-5.1); Sodium 144 mmol/L (136-145)
[2024-04-19 09:26] LABS: Total Protein 6.7 g/dL (5.7-8.2)
[2024-04-19 09:29] LABS: Alanine Aminotransferase < 9 U/L (7-40)
== END | disposition home or self-care (01) ==
LOC: LAB 07:33
PROVIDERS: ATTEND Specialist
DX: Z01.812 Encounter for preprocedural laboratory examination (principal); K63.5 Polyp of colon
CPT/HCPCS: 36415; 80053; 85025

== ENCOUNTER 2024-10-11 09:11 | Day surgery (SDC) | payer BC ==
[2024-10-08 10:01] LABS: Basophils # (auto) 0.1 10 ^3/uL (0-0.2); Basophils % (auto) 1.3 % (0.0-2.0); Eosinophils # (auto) 0.1 10 ^3/uL (0-0.8); Eosinophils % (auto) 1.7 % (0.0-7.0); Hematocrit 41.7 % (36.0-46.0); Hemoglobin 13.9 g/dL (12.2-16.2); Lymphocytes # (auto) 1.8 10 ^3/uL (0.4-5.4); Lymphocytes % (auto) 26.5 % (10.0-50.0); Mean Corpuscular Hemoglobin 28.9 pg (28.0-32.0); Mean Corpuscular Hgb Conc. 33.2 g/dL (32.0-36.0); Mean Corpuscular Volume 86.9 fL (80.0-100.0); Monocytes # (auto) 0.3 10 ^3/uL (0-1.3); Monocytes % (auto) 4.9 % (0.0-12.0); Neutrophils # (auto) 4.4 10 ^3/uL (1.6-8.6); Neutrophils % (auto) 65.6 % (37.0-80.0); Nucleated Red Blood Cells % 0.1 %; Platelet Count (auto) 227 10^3/uL (140-450); Red Cell Distribution Width 14.9 % (11.8-14.3); White Blood Cell 6.7 10^3/uL (4.4-10.8)
[2024-10-08 10:23] LABS: INR 1.01 (0.9-1.15); Partial Thromboplastin Time 27.6 SEC (24.5-34.5); Prothrombin Time 10.7 sec (9.3-11.8)
[2024-10-08 10:49] LABS: Albumin 4.5 g/dL (3.2-4.8); Alkaline Phosphatase 80 U/L (46-116); Anion Gap 8 (5-15); BUN/Creatinine Ratio 9.6 (10.0-20.0); Bilirubin, Total 0.6 mg/dL (0.2-1.0); Calcium 9.9 mg/dL (8.7-10.4); Carbon Dioxide 29 mmol/L (20-31); Potassium 3.9 mmol/L (3.5-5.1)
[2024-10-08 10:50] LABS: Alanine Aminotransferase < 9 U/L (7-40); Aspartate Aminotransferase 11 U/L (13-40); Blood Urea Nitrogen 5 mg/dL (9-23); Chloride 109 mmol/L (98-107); Glucose 150 mg/dL (74-106); Sodium 146 mmol/L (136-145)
[~2024-10-11] VITALS: Ht 152.4 cm; Wt 57.2 kg
[~2024-10-11 09:11] MED LIST changes: +LISI-275 PO; -PIOG1TAB37 OR
[2024-10-11] MEDS ORDERED: SODIUM CHLORIDE LOCK 0 ML ONE (09:55)
[2024-10-11] MEDS ORDERED: MIDAZOLAM HCL 5 MG/ML-1ML VIAL ONE (09:55)
[2024-10-11] MEDS ORDERED: diphenhdrAMINE HCL 50 MG/1 ML VL ONE (09:56)
[2024-10-11] MEDS ORDERED: fentaNYL CITRATE 100 MCG/2 ML VL ONE (09:56)
[2024-10-11] MEDS ORDERED: GLYCOPYRROLATE 0.2 MG/ML 1ML VIAL ONE (12:02)
[2024-10-11] MEDS ORDERED: ONDANSETRON HCL 4 MG/2 ML VIAL ONE (12:02)
[2024-10-11] MEDS ORDERED: PROPOFOL 10 MG/ML 20 ML IV ONE (12:02)
[2024-10-11] MEDS ORDERED: MIDAZOLAM HCL 2MG/2ML 2ml VIAL (1mg/ml) ONE (12:02)
[2024-10-11 12:49] VITALS: PULSE 96; RESP 13; TEMP 97.9; O2SAT 100
--- NOTE | 2024-10-11 12:55 | DVHOP2 ---
Operative Report DATE OF OPERATION: 10/11/24 PROCEDURE: Colonoscopy with biopsy. PREOPERATIVE INDICATION: The patient is a 73 -year-old female undergoing colonoscopy for surveillance of colon polyps, personal history of cecal tubulovillous adenoma POSTOPERATIVE DIAGNOSES: 1. Patient had a medium size 3-4 cm superficially spreading polypoid growth in the base of the cecum close to the appendiceal orifice, multiple biopsies were obtained; this was not felt to be amenable to endoscopic resection 2. There was a 3-4 mm benign-appearing descending colon polyp that was seen and removed by hot snare polypectomy and the specimen was not retrieved 3. Mild sigmoid diverticular disease 4. Trace internal hemorrhoids otherwise normal examination up to the cecum PROCEDURE PERFORMED BY: Fanta Perez M.D. SCOPE: Olympus videocolonoscope. ASA CLASS: 3 PREOPERATIVE MEDICATIONS: Dr. Carlos Henao PROCEDURE IN DETAIL: After obtaining an informed consent, the patient was placed on left lateral decubitus position. She was then sedated with the above medications. A rectal examination was performed that was normal. The colonoscope was then passed through the anus into the rectosigmoid and through the descending, transverse, and ascending colon up to the cecum with visualization of the appendiceal orifice, base of the cecum and the ileocecal valve. The colonoscope was then withdrawn. In the base of the cecum there was a 3-4 cm superficially spreading polypoid growth This had a broad base and was not felt to be amenable to resection via colonosco pe. Multiple biopsies were obtained No other masses or colitis was noted. Patient had mild sigmoid diverticular disease In the descending colon at 40 cm above the anal verge there was a 3-4 mm benign- appearing polyp This was removed by hot snare polypectomy with the specimen was not retrieved due to suction error On retroflexion and straight on view the patient had trace to 1+ internal hemorrhoids The patient tolerated the procedure well without difficulty. WITHDRAWAL TIME: 8 minutes QUALITY OF THE PREP: [place] Bowel Prep score: 9. COMPLICATIONS : None SPECIMENS: Cecal polypoid mass biopsies DISPOSITION: Stable D/C to home PLAN: 1. Surgical referral for cecal resection 2. Repeat surveillance colonoscopy in 1-2 years after cecal resect 3. Outpatient follow up with me in 2-4 weeks to review results and discuss further management FANTA PEREZ MD Oct 11, 2024 12:55
[2024-10-11] MEDS ORDERED: ACCU-CHEK COMFORT CURVE STRIP VI ONE (13:00)
[2024-10-11 13:30] VITALS: BP 123/64; PULSE 104; RESP 12; O2SAT 98
== END 2024-10-11 13:40 | disposition home or self-care (01) ==
LOC: GI 09:11
PROVIDERS: ATTEND Internal Medicine Gastroenterology
DX: R19.4 Change in bowel habit (principal); D12.0 Benign neoplasm of cecum; K57.30 Diverticulosis of large intestine without perforation or abscess without bleeding; K64.8 Other hemorrhoids; I10 Essential (primary) hypertension; E78.5 Hyperlipidemia, unspecified; E11.42 Type 2 diabetes mellitus with diabetic polyneuropathy; I25.10 Atherosclerotic heart disease of native coronary artery without angina pectoris; Z90.89 Acquired absence of other organs; Z98.51 Tubal ligation status; Z98.890 Other specified postprocedural states; Z79.84 Long term (current) use of oral hypoglycemic drugs; Z79.82 Long term (current) use of aspirin; Z79.899 Other long term (current) drug therapy; Z95.5 Presence of coronary angioplasty implant and graft; Z90.49 Acquired absence of other specified parts of digestive tract
CPT/HCPCS: 36415; 45380; 45385; 80053; 82962; 85025; 85610; 85730; 88305; J2250; J2405; J2704; J7030

== ENCOUNTER 2024-12-04 08:02 | Outpatient (CLI) | payer BC ==
[~2024-12-04] VITALS: Ht 152.4 cm; Wt 58.1 kg
== END 2024-12-04 17:00 | disposition home or self-care (01) ==
LOC: Rad HDHVI 08:02
PROVIDERS: ATTEND Internal Medicine Cardiovascular Disease
DX: I49.1 Atrial premature depolarization (principal); I49.3 Ventricular premature depolarization; R00.0 Tachycardia, unspecified; I13.0 Hypertensive heart and chronic kidney disease with heart failure and stage 1 through stage 4 chronic kidney disease, or unspecified chronic kidney disease; I50.33 Acute on chronic diastolic (congestive) heart failure; N18.9 Chronic kidney disease, unspecified; E11.42 Type 2 diabetes mellitus with diabetic polyneuropathy; E11.22 Type 2 diabetes mellitus with diabetic chronic kidney disease; I25.10 Atherosclerotic heart disease of native coronary artery without angina pectoris; E78.2 Mixed hyperlipidemia; I25.5 Ischemic cardiomyopathy; R07.89 Other chest pain; Z82.49 Family history of ischemic heart disease and other diseases of the circulatory system
CPT/HCPCS: 78452; 93017; A9500; 96374

== ENCOUNTER 2025-01-01 06:28 | Inpatient (IN) | payer BC ==
[2024-12-30 11:21] LABS: Basophils # (auto) 0 10 ^3/uL (0-0.2); Basophils % (auto) 0.5 % (0.0-2.0); Eosinophils # (auto) 0.1 10 ^3/uL (0-0.8); Eosinophils % (auto) 0.9 % (0.0-7.0); Hematocrit 40.8 % (36.0-46.0); Hemoglobin 13.8 g/dL (12.2-16.2); Lymphocytes # (auto) 1.7 10 ^3/uL (0.4-5.4); Mean Corpuscular Hemoglobin 28.8 pg (28.0-32.0); Mean Corpuscular Hgb Conc. 33.7 g/dL (32.0-36.0); Mean Corpuscular Volume 85.5 fL (80.0-100.0); Monocytes # (auto) 0.4 10 ^3/uL (0-1.3); Monocytes % (auto) 5.4 % (0.0-12.0); Neutrophils # (auto) 5.6 10 ^3/uL (1.6-8.6); Neutrophils % (auto) 71.2 % (37.0-80.0); Platelet Count (auto) 202 10^3/uL (140-450); Red Blood Cells 4.78 10^6/uL (4.0-5.20); Red Cell Distribution Width 15.5 % (11.8-14.3); White Blood Cell 7.9 10^3/uL (4.4-10.8)
[2024-12-30 11:24] LABS: Urine Bacteria MANY /hpf (None Seen); Urine Blood Negative /uL (Negative); Urine Clarity Turbid (Clear); Urine Color Yellow (Yellow); Urine Hyaline Cast FEW /lpf (0 - 2); Urine Mucus FEW (None Seen); Urine Protein, UAD TRACE (Negative); Urine Squamous Epithelial Cell FEW /hpf (<5); Urine Urobilinogen Normal (Negative); Urine WBC 131 /HPF (0-5); Urine pH 5.5 (5.0-9.0)
[2024-12-30 11:32] LABS: INR 1.03 (0.9-1.15); Partial Thromboplastin Time 27.3 SEC (24.5-34.5); Prothrombin Time 10.9 sec (9.3-11.8)
[2024-12-30 11:41] LABS: Albumin 4.5 g/dL (3.2-4.8); Alkaline Phosphatase 90 U/L (46-116); Anion Gap 10 (5-15); Aspartate Aminotransferase 13 U/L (<34); BUN/Creatinine Ratio 12.3 (10.0-20.0); Calcium 10.1 mg/dL (8.7-10.4); Carbon Dioxide 28 mmol/L (20-31); Glucose 90 mg/dL (74-106); Potassium 4.2 mmol/L (3.5-5.1)
[2024-12-30 11:42] LABS: Bilirubin, Total 0.6 mg/dL (0.2-1.0)
[2024-12-30 11:48] LABS: Alanine Aminotransferase < 9 U/L (7-40); Blood Urea Nitrogen 7 mg/dL (9-23); Chloride 110 mmol/L (98-107); Sodium 148 mmol/L (136-145)
[~2025-01-01] VITALS: Ht 152.4 cm; Wt 60.5 kg
[~2025-01-01 06:28] MED LIST changes: -ASPI1TAB20 PO; -CINN500T PO; +PANT40TA2 PO; +SITA50TA PO
[2025-01-01] MEDS: BUPIVACAINE 0.25% INJ 50ML VIAL ONE (07:00)
[2025-01-01] MEDS ORDERED: PROPOFOL 10 MG/ML 20 ML IV ONE (07:08)
[2025-01-01] MEDS ORDERED: ROCURONIUM 10MG/ML 10ML VIAL IV ONE (07:08)
[2025-01-01] MEDS ORDERED: GLYCOPYRROLATE 0.2 MG/ML 1ML VIAL ONE (07:08)
[2025-01-01] MEDS ORDERED: ONDANSETRON HCL 4 MG/2 ML VIAL ONE (07:09)
[2025-01-01] MEDS ORDERED: LIDOCAINE 2% (LOCAL ANESTH.) PF 5ml SDV ONE (07:09)
[2025-01-01] MEDS ORDERED: SUGAMMADEX 200mg/2ml Vial (100MG/ML) IV ONE (07:09)
[2025-01-01] MEDS ORDERED: DexAMETHasone SOD PHOS 10MG/1ML VIAL INJ ONE ×2 (07:09→07:11)
[2025-01-01] MEDS ORDERED: KETOROLAC TROMETH 30 MG/ML 1ML VIAL ONE (07:09)
[2025-01-01] MEDS: metroNIDAZOLE 500MG/100ML 100 ML IV ONE (07:09)
[2025-01-01] MEDS ORDERED: EPINEPHrine HCL 1 MG/1 ML AMP ONE (07:11)
[2025-01-01] MEDS: GABAPENTIN 300 MG CAP ONE (07:15)
[2025-01-01] MEDS: CELECOXIB 100 MG CAP ONE (07:15)
[2025-01-01] MEDS: ACETAMINOPHEN IV 100 ML IV ONE (07:16)
[2025-01-01] MEDS: CELECOXIB 100 MG CAP PO ONE (07:42)
[2025-01-01] MEDS: GABAPENTIN 300 MG CAP PO ONE (07:42)
[2025-01-01] MEDS: ACETAMINOPHEN IV 1000 MG/100ML (10MG/ML) IV ONE (07:42)
[2025-01-01] MEDS: ASPirin 325 MG TAB ONE (07:42)
[2025-01-01] MEDS: ASPirin 325 MG TAB PO ONE (07:45)
[2025-01-01] MEDS ORDERED: KETAMINE 50mg/ML 1ml syringe ONE (08:11)
[2025-01-01] MEDS ORDERED: fentaNYL CITRATE 100 MCG/2 ML VL ONE (08:12)
[2025-01-01] MEDS: ceFAZolin 2 GM/D5W50ml 50 ML IV ONE (08:15)
[2025-01-01] MEDS ORDERED: METOPROLOL TARTRATE 1MG/1ML-5ML VIAL IV ONE (08:35)
[2025-01-01] MEDS ORDERED: SODIUM CHLORIDE LOCK 10 ML ONE (08:40)
[2025-01-01] MEDS ORDERED: PHENYLEPHRINE HCL 10 MG/ML VL ONE (08:40)
[2025-01-01] MEDS ORDERED: LABETALOL HCL 5 MG/ML ML 20ML VIAL IV ONE (08:52)
[2025-01-01 10:10] VITALS: O2SAT 100
[2025-01-01] MEDS ORDERED: D5W/SOD CHL 0.45%/KCL 20MEQ 1,000 ML IV SCH (10:15)
[2025-01-01] MEDS ORDERED: fentaNYL CITRATE 100 MCG/2 ML VL IV PRN (10:30)
[2025-01-01] MEDS ORDERED: FLUMAZENIL 0.1 MG/ML INJ 10ML MDV IV PRN (10:30)
[2025-01-01] MEDS ORDERED: ePHEDrine SULFATE 50 MG/ML AMP IV PRN (10:30)
[2025-01-01] MEDS ORDERED: NALOXONE HCL 0.4 MG/ML VIAL IV PRN (10:30)
[2025-01-01] MEDS ORDERED: hydrALAZINE HCL 20 MG/ML VL IV PRN (10:30)
[2025-01-01] MEDS ORDERED: HYDROmorphone HCL 2 MG/ML VL/or syr IV PRN (10:30)
[2025-01-01] MEDS: ONDANSETRON HCL 4 MG/2 ML VIAL ONE (10:38)
[2025-01-01] MEDS: ONDANSETRON HCL 4 MG/2 ML VIAL IV PRN (10:40)
[2025-01-01] MEDS ORDERED: NITROGLYCERIN 0.4 MG SL TAB SL PRN (11:00)
[2025-01-01] MEDS ORDERED: MORPHINE SULFATE INJ 2 MG/ml SYRG IV PRN (11:00)
--- NOTE | 2025-01-01 11:27 | DVHHP2 ---
Review of Systems Allergies: Coded Allergies: Codeine (Unverified Adverse Reaction, Mild, nausea, vomit , 12/30/24) Medications Current Medications Medications Dose Ordered Sig/Carmen Route Start Time Stop Time Status Last Admin Dose Admin Potassium Chloride/Dextrose/ Sod Cl 1,000 ml @ 120 mls/hr Q8H20M IV 01/01/25 10:15 Cefazolin Sodium 50 ml @ 100 mls/hr Q8HR IV 01/01/25 14:00 Metronidazole 100 ml @ 100 mls/hr Q8HR IV 01/01/25 14:00 Hydromorphone HCl 0.5 mg Q2HPRN PRN IV 01/01/25 10:15 Nitroglycerin 0.4 mg Q5MINP PRN SL 01/01/25 11:00 Morphine Sulfate 2 mg Q30M PRN IV 01/01/25 11:00 Exam Vital Signs Vital Signs Date Time Temp Pulse Resp B/P (MAP) Pulse Ox O2 Delivery O2 Flow Rate FiO2 01/01/25 10:10 Mask 7.0 100 01/01/25 10:10 100 01/01/25 06:38 97.5 86 18 130/74 (92) 97.5 Labs/Xrays Labs Test 01/01/25 07:02 12/30/24 10:33 Range/Units POC Glucose 164 H 70-106 mg/dl White Blood Count 7.9 4.4-10.8 10^3/uL Red Blood Count 4.78 4.0-5.20 10^6/uL Hemoglobin 13.8 12.2-16.2 g/dL Hematocrit 40.8 36.0-46.0 % Mean Corpuscular Volume 85.5 80.0-100.0 fL Mean Corpuscular Hemoglobin 28.8 28.0-32.0 pg Mean Corpuscular Hemoglobin Concent 33.7 32.0-36.0 g/dL Red Cell Distribution Width 15.5 H 11.8-14.3 % Platelet Count 202 140-450 10^3/uL Mean Platelet Volume 8.5 6.9-10.8 fL Neutrophils (%) (Auto) 71.2 37.0-80.0 % Lymphocytes (%) (Auto) 22.0 10.0-50.0 % Monocytes (%) (Auto) 5.4 0.0-12.0 % Eosinophils (%) (Auto) 0.9 0.0-7.0 % Basophils (%) (Auto) 0.5 0.0-2.0 % Neutrophils # (Auto) 5.6 1.6-8.6 10 ^3/uL Lymphocytes # (Auto) 1.7 0.4-5.4 10 ^3/uL Monocytes # (Auto) 0.4 0-1.3 10 ^3/uL Eosinophils # (Auto) 0.1 0-0.8 10 ^3/uL Basophils # (Auto) 0 0-0.2 10 ^3/uL Nucleated Red Blood Cells 0.0 % Prothrombin Time 10.9 9.3-11.8 sec Prothrombin Time INR 1.03 0.9-1.15 Activated Partial Thromboplast Time 27.3 24.5-34.5 SEC Urine Color Yellow Yellow Urine Clarity Turbid H Clear Urine pH 5.5 5.0-9.0 Urine Specific [place] 1.020 1.001-1.035 Urine Protein Trace H Negative Urine Ketones Negative Negative Urine Blood Negative Negative /uL Urine Nitrite 1+ H Negative Urine Bilirubin Negative Negative Urine Urobilinogen Normal Negative mg/dL Urine Leukocyte Esterase 3+ Negative /uL Urine RBC 4 0 - 4 /hpf Urine Microscopic WBC 131 H 0-5 /HPF Urine Squamous Epithelial Cells Few <5 /hpf Urine Bacteria Many H None Seen /hpf Urine Hyaline Casts Few 0 - 2 /lpf Urine Mucus Few None Seen Urine Glucose Normal Normal mg/dL Sodium Level 148 H 136-145 mmol/L Potassium Level 4.2 3.5-5.1 mmol/L Chloride Level 110 H 98-107 mmol/L Carbon Dioxide Level 28 20-31 mmol/L Anion Gap 10 5-15 Blood Urea Nitrogen 7 L 9-23 mg/dL Creatinine 0.57 0.550-1.02 mg/dL Glomerular Filtration Rate Calc 96 >90 mL/min BUN/Creatinine Ratio 12.3 10.0-20.0 Serum Glucose 90 74-106 mg/dL Calcium Level 10.1 8.7-10.4 mg/dL Total Bilirubin 0.6 0.2-1.0 mg/dL Aspartate Amino Transferase (AST) 13 <34 U/L Alanine Aminotransferase (ALT) < 9 7-40 U/L Alkaline Phosphatase 90 46-116 U/L Total Protein 7.0 5.7-8.2 g/dL Albumin 4.5 3.2-4.8 g/dL Assessment/Plan Assessment/Plan see dictated note Plan discussed with: Patient My Orders Orders - DANNY SERRANO MD Procedure Category Date Status Time Admit ADMIT 01/01/25 Transmitted 10:47 Oxygen By Nasal RT 01/01/25 Transmitted Cannula 10:47 Nitroglycerin PHA 01/01/25 In Process Sublingual (Ntrostat 11:00 Morphine Sulfate PHA 01/01/25 In Process Injection 11:00 Stat Ekg For Chest NAVNEET 01/01/25 In Process Pain 10:47 Notify Md Of Changes NAVNEET 01/01/25 In Process From Base 10:47 Inset Cutter For NAVNEET 01/01/25 In Process 24 Hours 10:47 Emergency Dysrhythmia NAVNEET 01/01/25 In Process Protocol 10:47 Rhythm Strips Once NAVNEET 01/01/25 In Process Every Shift 10:47 D5 1/2 Ns Potassium PHA 01/01/25 Transmitted 20meq 11:30 Urine Bacterial EMILY 01/01/25 Transmitted Culture 11:23 Ceftriaxone Ivpb PHA 01/02/25 Transmitted Rocephin 09:00 Pantoprazole PHA 01/01/25 Transmitted (Protonix) 11:30 Pantoprazole PHA 01/02/25 Transmitted (Protonix) 10:00 Glucose Blood PHA 01/01/25 Transmitted (Accu-Chek Comfort 12:00 Mild Sliding Scale PHA 01/01/25 Transmitted Npo - Q6hr 12:00 Dextrose 50% Syringe PHA 01/01/25 Transmitted 11:30 Complete Blood Count LAB 01/02/25 Verified 06:00 Comprehensive LAB 01/02/25 Verified Metabolic Panel 06:00 Hemoglobin A1c LAB 01/02/25 Verified 06:00 Chest Portable XY 01/02/25 Transmitted 06:00 Date of Service: Jan 01, 2025 Billing Provider: DANNY SERRANO MD Common Visit Codes: [id number] INP/OBS CARE (HIGH) Secondary Visit Codes: [id number] CARE PLAN 30 MINUTES DANNY SERRANO MD Jan 01, 2025 11:27
[2025-01-01] MEDS ORDERED: DEXTROSE (50%) 50ML SYRG IV PRN (11:30)
[2025-01-01] MEDS: InsuLIN REG 1unit/0.01ml Soln (100units/ml) SC SCH (11:55)
--- NOTE | 2025-01-01 11:57 | DVHHP ---
ADMIT DATE: 01/01/2025 HISTORY OF PRESENT ILLNESS: The patient is a 74-year-old lady who was admitted after she underwent exploratory laparotomy for colon cancer. The patient at this time denies any ____ pain. No chest pain, no shortness of breath, no nausea or vomiting. REVIEW OF SYSTEMS: Review of rest of systems otherwise currently negative. PAST MEDICAL HISTORY: Significant for coronary artery disease, congestive heart failure, diabetes, hypertension, and hyperlipidemia. MEDICATIONS: Lipitor, Plavix, glyburide, lisinopril, metformin, metoprolol, Protonix, and Januvia. ALLERGIES: TO CODEINE. SOCIAL HISTORY: No history of smoking. Lives with family. FAMILY HISTORY: Negative. PHYSICAL EXAMINATION: GENERAL: The patient is awake. VITAL SIGNS: Temperature of 97.5, pulse 86 per minute, blood pressure 130/74. SHEENT: Unremarkable. NECK: No JVD. EXTREMITIES: No pedal edema. LUNGS: Equal bilaterally. CARDIOVASCULAR: S1 and S2 is regular. ABDOMEN: Soft. There is a drain in place. Bowel sounds are inactive. There is an NG tube in place. NEUROLOGIC: Nonfocal. MUSCULOSKELETAL: Normal. ASSESSMENT AND PLAN: * Diabetes mellitus for which the patient is on sliding scale insulin. * Chronic systolic heart failure for which she will be monitored for flare-up of CHF. * Hypertension. * Hyperlipidemia. * UTI for which urine culture will be obtained and she will be placed on IV Rocephin. * Status post exploratory laparotomy for colon cancer for which she will be placed n.p.o. with pain medications and IV fluids. * Advanced care planning: The patient is a Full Code-Time spent was 19 minutes. MD RELL Camacho/CAPO/PHUC TID: [id number] RECEIPT: [id number] [facility]
[2025-01-01] MEDS: ACCU-CHEK COMFORT CURVE STRIP VI SCH (12:00)
[2025-01-01] MEDS: D5W/SOD CHL 0.45%/KCL 20MEQ 1,000 ML IV SCH (13:56)
[2025-01-01] MEDS ORDERED: ceFAZolin 1GM/50ML 50 ML IV SCH (14:00)
[2025-01-01 14:30] VITALS: BP 117/52; PULSE 98; RESP 17; TEMP 97.5; O2SAT 97
[2025-01-01] MEDS: metroNIDAZOLE 500MG/100ML 100 ML IV SCH (15:50)
[2025-01-01 16:02] VITALS: PULSE 98; RESP 17; O2SAT 97
[2025-01-01 17:00] VITALS: BP 132/75; PULSE 77; RESP 17; TEMP 96.9; O2SAT 97
--- NOTE | 2025-01-01 17:40 | DVHOP ---
DATE OF SURGERY: 01/01/2025 PREOPERATIVE DIAGNOSIS: Tubulovillous adenoma in the cecum. 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 SURGEON: Nathan Souza MD MANAGER DATA CENTER: Radames Newton NP ANESTHESIA: General endotracheal. ANESTHESIOLOGIST: Matteo Ruiz MD PROCEDURE: Laparotomy with right colon resection. DESCRIPTION OF PROCEDURE: Under general endotracheal anesthesia with the patient's skin prepped and draped, an incision was made measuring approximately 3 inches in length around the umbilicus in a vertical fashion. The incision was deepened with electrocautery. The peritoneal cavity was entered. The fascia was elevated and digital exploration revealed adhesions between the omentum and the anterior abdominal wall. These were lysed sharply. At this point, the viscera were displaced so as to be able to visualize the tinea of the right colon. This was grabbed with a [place] forceps and placed on tension. The right colon was mobilized by incision along the white line of [place] and the distal ileum was mobilized. The distal ileum was mobilized sufficiently to divide the bowel with a INOCENCIO stapler. The mesentery was divided between clamps and ligated. At this point, the cecum and ascending colon were mobilized toward the midline. The mesentery was divided between clamps. The ascending colon section just underneath the hepatic flexure was transected with a INOCENCIO stapler. Following division of the mesentery, the cecum and ascending colon specimen were taken to a separate station in the operating room and the specimen was opened in order to assure presence of the tumor within the cecum. The inspection visualized the tubulovillous adenoma within the lumen and the specimen was submitted for histopathologic examination. Gloves were changed at this point and the bowel was brought into approximation and the distal ileum was anastomosed to the remaining ascending colon in a [id number] fashion using 3-0 Prolene for the outer layer and 3-0 Monocryl for the inner layer. The edges of the mucosa were swapped with Betadine prior to termination of the anastomosis. The anastomosis was tested for water tightness, which indeed was accomplished by palpation and visual inspection. The patient's mesenteric defect was approximated using 2-0 Monocryl suture. The bowel returned back into its normal anatomical position. The abdomen was profusely irrigated. Irrigant was aspirated and the peritoneal cavity was drained by means of a 10-mm [place]-Cardoso drain, which was exteriorized separately and secured with a 2-0 nylon suture. Following assurance of complete hemostasis and report of an accurate needle and sponge counts, the midline fascia was approximated after approximating the peritoneum with a 2-0 Monocryl suture. The fascia was approximated using #1 double-stranded PDS suture. Subcutaneous tissues were approximated and the skin was approximated using metallic skin eloy. The patient remained in stable condition throughout the procedure, left the operating room following an accurate needle and sponge count. Her family was thoroughly informed in the waiting area. Nathan Souza MD PF/SUB TID: [id number] RECEIPT: [id number]
[2025-01-01] MEDS: HYDROmorphone HCL 2 MG/ML VL/or syr IV PRN (19:46)
[2025-01-01 20:00] VITALS: PULSE 92; RESP 17; O2SAT 94
[2025-01-01 21:00] VITALS: BP 136/84; PULSE 84; RESP 16; TEMP 99.4; O2SAT 94
[2025-01-01] MEDS: PANTOPRAZOLE 40 MG/10 ML VIAL INJ IV ONE (21:23)
[2025-01-02] VITALS (8 sets, daily range): BP systolic 100–142; BP diastolic 47–77; PULSE 77–94; RESP 16–18; TEMP 97.6–98.3; O2SAT 92–97
--- NOTE | 2025-01-02 03:15 | DVH ---
CHEST RADIOGRAPH Indication: chf Technique: Single frontal view of the chest was obtained COMPARISON: XY CHEST PORTABLE on DOS: 09/16/23, XY CHEST PORTABLE on DOS: 09/15/23, XY CHEST PORTABLE on DOS: 09/06/23 FINDINGS: Lines and Tubes: Enteric catheter appears to be looped back upon itself across the midline of the upp er abdomen and terminates within the left upper quadrant, presumably within the gastric lumen. Lungs: Mild diffuse increased of the pulmonary vasculature without evidence of focal consolidation. Pleura: No effusion. No pneumothorax. Cardiomediastinal contours: Cardiomegaly. Bones: Unremarkable IMPRESSION: 1. No acute disease. Mild diffuse increased prominence of the pulmonary vasculature. 2. Enteric catheter as above.
[2025-01-02 06:26] LABS: Basophils # (auto) 0 10 ^3/uL (0-0.2); Basophils % (auto) 0.1 % (0.0-2.0); Eosinophils # (auto) 0 10 ^3/uL (0-0.8); Hematocrit 34.3 % (36.0-46.0); Hemoglobin 11.5 g/dL (12.2-16.2); Lymphocytes # (auto) 0.9 10 ^3/uL (0.4-5.4); Lymphocytes % (auto) 9.7 % (10.0-50.0); Mean Corpuscular Hemoglobin 28.3 pg (28.0-32.0); Mean Corpuscular Hgb Conc. 33.5 g/dL (32.0-36.0); Mean Corpuscular Volume 84.4 fL (80.0-100.0); Monocytes # (auto) 0.8 10 ^3/uL (0-1.3); Monocytes % (auto) 8.3 % (0.0-12.0); Neutrophils # (auto) 7.5 10 ^3/uL (1.6-8.6); Neutrophils % (auto) 81.9 % (37.0-80.0); Platelet Count (auto) 177 10^3/uL (140-450); Red Blood Cells 4.06 10^6/uL (4.0-5.20); Red Cell Distribution Width 14.9 % (11.8-14.3); White Blood Cell 9.2 10^3/uL (4.4-10.8)
[2025-01-02 06:48] LABS: Alanine Aminotransferase < 9 U/L (7-40); Albumin 3.8 g/dL (3.2-4.8); Alkaline Phosphatase 75 U/L (46-116); Anion Gap 10 (5-15); Aspartate Aminotransferase 13 U/L (<34); BUN/Creatinine Ratio 16.4 (10.0-20.0); Bilirubin, Total 0.5 mg/dL (0.2-1.0); Blood Urea Nitrogen 11 mg/dL (9-23); Carbon Dioxide 26 mmol/L (20-31); Chloride 103 mmol/L (98-107); Glucose 258 mg/dL (74-106); Potassium 3.4 mmol/L (3.5-5.1); Sodium 139 mmol/L (136-145); Total Protein 5.8 g/dL (5.7-8.2)
[2025-01-02] MEDS: cefTRIAXone 1GM/50ML D5W 50 ML IV SCH (09:05)
[2025-01-02] MEDS: PANTOPRAZOLE 40 MG/10 ML VIAL INJ IV SCH (09:05)
--- NOTE | 2025-01-02 09:50 | DVHPN2 ---
Progress Note Date Seen: Jan 02, 2025 Medical Necessity Reason Pt with a Central, PICC or Fol: No Subjective Patient reports: No new complaints Review of Systems: HEENT:Normal, CVS:Normal, RESPIRATORY:Normal, GI:Normal, :Normal, MSK:Normal, NEURO:Normal Objective vital signs Vital Sign Date Time Temp Pulse Resp B/P (MAP) Pulse Ox O2 Delivery O2 Flow Rate FiO2 01/02/25 05:00 98.0 88 16 116/77 (90) 94 98.0 01/01/25 20:00 Room Air* 0 21 Total Intake and Output 01/01/25 01/01/25 01/02/25 15:00 23:00 07:00 Intake Total 50 ml 100 ml 100 ml Output Total 1400 ml 670 ml 620 ml Balance -1350 ml -570 ml -520 ml medications Current Medications Medications Dose Ordered Sig/Carmen Route Start Time Stop Time Status Last Admin Dose Admin Metronidazole 100 ml @ 100 mls/hr Q8HR IV 01/01/25 14:00 01/02/25 05:25 100 MLS/HR Hydromorphone HCl 0.5 mg Q2HPRN PRN IV 01/01/25 10:15 01/01/25 19:46 0.5 MG Nitroglycerin 0.4 mg Q5MINP PRN SL 01/01/25 11:00 Morphine Sulfate 2 mg Q30M PRN IV 01/01/25 11:00 Potassium Chloride/Dextrose/ Sod Cl 1,000 ml @ 100 mls/hr Q10H IV 01/01/25 11:30 01/02/25 01:48 100 MLS/HR Ceftriaxone Sodium 50 ml @ 100 mls/hr DAILY@09 IV 01/02/25 09:00 01/02/25 09:05 100 MLS/HR Pantoprazole Sodium 40 mg DAILY IV 01/02/25 10:00 01/02/25 09:05 40 MG Diagnostic Test (Pha) 1 strip Q6HR 01/01/25 12:00 01/02/25 05:21 1 STRIP Insulin Human Regular Q6HR SC 01/01/25 12:00 01/02/25 05:35 6 UNITS Dextrose 50 ml UD PRN IV 01/01/25 11:30 Examination: GENERAL:Normal, HEENT:Normal, NECK:Normal, LUNGS:Normal, CVS:Normal, ABDOMEN:Normal, ABDOMEN:Abnormal (ng tube), MSK:Normal, SKIN:Normal, NEURO:Normal, :Normal laboratory and microbiology Laboratory Tests 01/02/25 04:45 Test 01/02/25 04:45 Range/Units Serum Glucose 258 H 74-106 mg/dL Problem List/Assessment/Plan Problem List/Assessment/Plan * Diabetes mellitus for which the patient is on sliding scale insulin. * Chronic systolic heart failure for which she will be monitored for flare-up of CHF, cardio eval * Hypertension. * Hyperlipidemia. * UTI for which urine culture will be obtained and she will be placed on IV Rocephin. * Status post exploratory laparotomy for colon cancer for which she will be placed n.p.o. with pain medications and IV fluids. * Advanced care planning: The patient is a Full Code-Time spent was 19 minutes. Plan discussed with: Patient, Spouse My Orders My Orders Orders - DANNY SERRANO MD Procedure Category Date Status Time Admit ADMIT 01/01/25 Transmitted 10:47 Oxygen By Nasal RT 01/01/25 Transmitted Cannula 10:47 Nitroglycerin PHA 01/01/25 In Process Sublingual (Ntrostat 11:00 Morphine Sulfate PHA 01/01/25 In Process Injection 11:00 Stat Ekg For Chest NAVNEET 01/01/25 In Process Pain 10:47 Notify Md Of Changes NAVNEET 01/01/25 In Process From Base 10:47 Anodizer For NAVNEET 01/01/25 In Process 24 Hours 10:47 Emergency Dysrhythmia NAVNEET 01/01/25 In Process Protocol 10:47 Rhythm Strips Once NAVNEET 01/01/25 In Process Every Shift 10:47 D5w/Sod Chl 0.45%/Kcl PHA 01/01/25 In Process 20meq 11:30 Urine Bacterial EMILY 01/01/25 Logged Culture 11:23 Ceftriaxone 1gm/50ml PHA 01/02/25 In Process D5w (Rocephin) 09:00 Pantoprazole PHA 01/02/25 In Process (Protonix) 10:00 Glucose Blood PHA 01/01/25 In Process (Accu-Chek Comfort 12:00 Insulin R (Human) PHA 01/01/25 In Process (Insulin R) 12:00 Dextrose 50% Syringe PHA 01/01/25 In Process 11:30 Chest Portable XY 01/02/25 Resulted 06:00 * Cardiology Consult CONS 01/02/25 Transmitted 09:46 NS PHA 01/02/25 Transmitted 10:00 Potassium Chl Marcus PHA 01/02/25 Transmitted KCL 10:00 Pt Request For Service PT 01/02/25 Transmitted 09:46 Basic Metabolic Panel LAB 01/03/25 Verified 06:00 Complete Blood Count LAB 01/03/25 Verified 06:00 Magnesium LAB 01/03/25 Verified 05:00 Date of Service: Jan 02, 2025 Billing Provider: DANNY SERRANO MD Common Visit Codes: [id number] INP/OBS CARE(HIGH) Secondary Visit Codes: [id number] CARE PLAN 30 MINUTES DANNY SERRANO MD Jan 02, 2025 09:50
[2025-01-02] MEDS ORDERED: POTASSIUM CHL 20MEQ/100ML 100 ML IV SCH (11:00)
--- NOTE | 2025-01-02 11:02 | DVHPN2 ---
Progress Note - Dictate Date Seen: Jan 01, 2025 Medical Necessity Reason Pt with a Central, PICC or Fol: No Subjective PT S/P 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 NO COMPLICATION HYPONATREMIA HX OF CAD S/P PTCA STENT OF LAD STENT THROMBOSIS OF LAD WITH FAILED REVASCULARIZATION ECHO EF 60% DIABETES VASCULOPATHY vital signs Vital Sign Date Time Temp Pulse Resp B/P (MAP) Pulse Ox O2 Delivery O2 Flow Rate FiO2 01/02/25 09:00 98.3 77 16 100/47 (64) 95 98.3 01/01/25 20:00 Room Air* 0 21 Total Intake and Output 01/01/25 01/01/25 01/02/25 15:00 23:00 07:00 Intake Total 50 ml 100 ml 100 ml Output Total 1400 ml 670 ml 620 ml Balance -1350 ml -570 ml -520 ml medications Current Medications Medications Dose Ordered Sig/Carmen Route Start Time Stop Time Status Last Admin Dose Admin Metronidazole 100 ml @ 100 mls/hr Q8HR IV 01/01/25 14:00 01/02/25 05:25 100 MLS/HR Hydromorphone HCl 0.5 mg Q2HPRN PRN IV 01/01/25 10:15 01/01/25 19:46 0.5 MG Nitroglycerin 0.4 mg Q5MINP PRN SL 01/01/25 11:00 Morphine Sulfate 2 mg Q30M PRN IV 01/01/25 11:00 Ceftriaxone Sodium 50 ml @ 100 mls/hr DAILY@09 IV 01/02/25 09:00 01/02/25 09:05 100 MLS/HR Pantoprazole Sodium 40 mg DAILY IV 01/02/25 10:00 01/02/25 09:05 40 MG Diagnostic Test (Pha) 1 strip Q6HR 01/01/25 12:00 01/02/25 05:21 1 STRIP Insulin Human Regular Q6HR SC 01/01/25 12:00 01/02/25 05:35 6 UNITS Dextrose 50 ml UD PRN IV 01/01/25 11:30 Sodium Chloride 1,000 ml @ 75 mls/hr [id number] IV 01/02/25 10:00 UNV laboratory and microbiology Laboratory Tests 01/02/25 04:45 Test 01/02/25 04:45 Range/Units Serum Glucose 258 H 74-106 mg/dL Problem List /P 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 NO COMPLICATION HYPONATREMIA HX OF CAD S/P PTCA STENT OF LAD STENT THROMBOSIS OF LAD WITH FAILED REVASCULARIZATION ECHO EF 60% DIABETES VASCULOPATHY Assessment/Plan CARDIAC STATUS STABLE CORRECT HYPOKALEMIA Plan discussed with: Patient LIYA HOPSON MD Jan 02, 2025 11:02
[2025-01-02] MEDS: SODIUM CHLORIDE 0.9% 1,000 ML IV SCH (11:31)
[2025-01-02] MEDS: POTASSIUM CHLORIDE 40 MEQ, LIDOCAINE 1% (LOCAL ANESTH.) 4 ML in SODIUM CHL 0.9% 250 ML IV ONE (11:31)
--- NOTE | 2025-01-02 21:04 | DVH ---
CHEST RADIOGRAPH Indication: NG tube placement verification, SOB Technique: Single frontal view of the chest was obtained Comparison: XY CHEST PORTABLE on DOS: 01/02/25, XY CHEST PORTABLE on DOS: 09/16/23, XY CHEST PORTABLE on DOS: 09/15/23, XY CHEST PORTABLE on DOS: 09/06/23 FINDINGS/IMPRESSION: Enteric tube appears looped within the left upper quadrant, presumably in the region of the stomach. The lungs are clear. Unchanged cardiomediastinal silhouette. No pleural effusion or pneumothorax. Unchanged osseous structures.
[2025-01-03] VITALS (7 sets, daily range): BP systolic 124–146; BP diastolic 63–82; PULSE 89–94; RESP 16–20; TEMP 97.5–98.4; O2SAT 92–97
--- NOTE | 2025-01-03 00:52 | DVH ---
EXAM: XY CHEST XRAY 1 VIEW CLINICAL HISTORY: NGT Placement Verification TECHNIQUE: Single AP view of the chest WID: COMPARISON: XY CHEST XRAY 1 VIEW on DOS: 01/02/25 FINDINGS: Lines and tubes: NG tube in place with the tip projecting over the distal body of the stomach. Cholec ystectomy clips are seen. Chest: The heart size and pulmonary vasculature is within normal limits. Linear bibasilar opacities, greater on the left. No pneumothorax or pleural effusion. The osseous structures are grossly intact. Multilevel thoracic spondylosis. Mild degenerative change of the bilateral shoulders. IMPRESSION: NG tube in place with the tip projecting over the distal body of the stomach.
[2025-01-03 06:05] LABS: Basophils # (auto) 0 10 ^3/uL (0-0.2); Basophils % (auto) 0.3 % (0.0-2.0); Eosinophils # (auto) 0 10 ^3/uL (0-0.8); Eosinophils % (auto) 0.3 % (0.0-7.0); Hematocrit 35.6 % (36.0-46.0); Hemoglobin 11.5 g/dL (12.2-16.2); Lymphocytes # (auto) 1.3 10 ^3/uL (0.4-5.4); Mean Corpuscular Hemoglobin 27.7 pg (28.0-32.0); Mean Corpuscular Hgb Conc. 32.4 g/dL (32.0-36.0); Mean Corpuscular Volume 85.5 fL (80.0-100.0); Monocytes # (auto) 0.4 10 ^3/uL (0-1.3); Monocytes % (auto) 5.2 % (0.0-12.0); Neutrophils # (auto) 6.1 10 ^3/uL (1.6-8.6); Neutrophils % (auto) 77.2 % (37.0-80.0); Nucleated Red Blood Cells % 0.1 %; Platelet Count (auto) 171 10^3/uL (140-450); Red Blood Cells 4.16 10^6/uL (4.0-5.20); Red Cell Distribution Width 15.6 % (11.8-14.3); White Blood Cell 7.9 10^3/uL (4.4-10.8)
[2025-01-03 06:19] LABS: Anion Gap 12 (5-15); Carbon Dioxide 24 mmol/L (20-31); Sodium 143 mmol/L (136-145)
[2025-01-03 06:26] LABS: BUN/Creatinine Ratio 11.1 (10.0-20.0); Magnesium 1.6 mg/dL (1.6-2.6)
[2025-01-03 06:29] LABS: Blood Urea Nitrogen 5 mg/dL (9-23); Chloride 107 mmol/L (98-107); Glucose 128 mg/dL (74-106); Potassium 3.4 mmol/L (3.5-5.1)
[2025-01-03 06:30] LABS: Calcium 8.3 mg/dL (8.7-10.4)
[2025-01-03] MEDS ORDERED: POTASSIUM CHLORIDE 20 MEQ, LIDOCAINE 1% (LOCAL ANESTH.) 2 ML in SODIUM CHL 0.9% 100 ML IV ONE (11:30)
--- NOTE | 2025-01-03 11:36 | DVHPN2 ---
Subjective Seen and examined at bedside, working with PTJhoan LEHMAN Tele. No Flatus or Bowel Movement. Changes from previous H/P or p: No Changes Objective Vitals Vital Signs Date Time Temp Pulse Resp B/P (MAP) Pulse Ox O2 Delivery O2 Flow Rate FiO2 01/03/25 05:00 97.9 93 16 146/76 (99) 95 97.9 01/02/25 20:00 Room Air* 0 21 Intake/Output Intake and Output 01/03/25 07:00 Intake Total 650 ml Output Total 1650 ml Balance -1000 ml Intake Oral 0 ml IV Total 650 ml Output Urine Total 1250 ml Gastric Drainage Total 300 ml Drainage Total 100 ml Exam Gen: in bed NAD Cvs: N S1/S2, RRR Resp: Diminished Abd: JEANNIE drain in place Pot Fisher: AAO x 4 Medications Current Medications Medications Dose Ordered Sig/Carmen Route Start Time Stop Time Status Last Admin Dose Admin Metronidazole 100 ml @ 100 mls/hr Q8HR IV 01/01/25 14:00 01/03/25 05:18 100 MLS/HR Hydromorphone HCl 0.5 mg Q2HPRN PRN IV 01/01/25 10:15 01/02/25 21:53 0.5 MG Nitroglycerin 0.4 mg Q5MINP PRN SL 01/01/25 11:00 Morphine Sulfate 2 mg Q30M PRN IV 01/01/25 11:00 Ceftriaxone Sodium 50 ml @ 100 mls/hr DAILY@09 IV 01/02/25 09:00 01/03/25 08:47 100 MLS/HR Pantoprazole Sodium 40 mg DAILY IV 01/02/25 10:00 01/03/25 08:47 40 MG Diagnostic Test (Pha) 1 strip Q6HR 01/01/25 12:00 01/03/25 11:16 1 STRIP Insulin Human Regular Q6HR SC 01/01/25 12:00 01/02/25 05:35 6 UNITS Dextrose 50 ml UD PRN IV 01/01/25 11:30 Potassium Chloride 100 ml @ 50 mls/hr Q2H IV 01/02/25 11:00 01/02/25 14:59 UNV Magnesium Sulfate/ Dextrose 100 ml @ 100 mls/hr Q1HR IV 01/03/25 12:00 01/03/25 13:59 UNV Laboratory Results Laboratory Tests 01/03/25 05:27 Chemistry Test 01/03/25 05:27 Calcium Level 8.3 mg/dL (8.7-10.4) L Magnesium Level 1.6 mg/dL (1.6-2.6) Urinalysis Test 12/30/24 10:33 Urine Color Yellow (Yellow) Urine Clarity Turbid (Clear) H Urine pH 5.5 (5.0-9.0) Urine Specific [place] 1.020 (1.001-1.035) Urine Protein Trace (Negative) H Urine Ketones Negative (Negative) Urine Blood Negative /uL (Negative) Urine Nitrite 1+ (Negative) H Urine Bilirubin Negative (Negative) Urine Urobilinogen Normal mg/dL (Negative) Urine Leukocyte Esterase 3+ /uL (Negative) Urine RBC 4 /hpf (0 - 4) Urine Microscopic WBC 131 /HPF (0-5) H Urine Squamous Epithelial Cells Few /hpf (<5) Urine Bacteria Many /hpf (None Seen) H Urine Hyaline Casts Few /lpf (0 - 2) Urine Mucus Few (None Seen) Urine Glucose Normal mg/dL (Normal) Assessment/Plan Assessment/Plan * Diabetes mellitus for which the patient is on sliding scale insulin. A1c 6.9 * Chronic systolic heart failure for which she will be monitored for flare-up of CHF, cardio eval, Dr. Galvez * Hypertension- Monitor and adjust meds as needed * UTI for which urine culture will be obtained and she will be placed on IV Rocephin. * Status post exploratory laparotomy for colon cancer for which she will be placed n.p.o. with pain medications * Advanced care planning: The patient is a Full Code-Time spent was 19 minutes. Plan discussed with: Patient, Spouse My Orders Orders - TESSA AJ MD Procedure Category Date Status Time Discontinue Tele NAVNEET 01/03/25 In Process 11:28 Potassium Chloride PHA 01/03/25 Logged (Potassium Chloride). 11:30 Basic Metabolic Panel LAB 01/04/25 Verified 04:00 Complete Blood Count LAB 01/04/25 Verified 04:00 Magnesium LAB 01/04/25 Verified 04:00 Magnesium Sulfate PHA 01/03/25 Logged 1gm/100ml 12:00 Date of Service: Jan 03, 2025 Billing Provider: TESSA AJ MD Common Visit Codes: [id number] INP/OBS CARE(HIGH) Secondary Visit Codes: [id number] CARE PLAN 30 MINUTES TESSA AJ MD Jan 03, 2025 11:36
--- NOTE | 2025-01-03 13:43 | DVHPN2 ---
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 COMPLICATION HYPONATREMIA HX OF CAD S/P PTCA STENT OF LAD STENT THROMBOSIS OF LAD WITH FAILED REVASCULARIZATION ECHO EF 60% DIABETES VASCULOPATHY vital signs Vital Sign Date Time Temp Pulse Resp B/P (MAP) Pulse Ox O2 Delivery O2 Flow Rate FiO2 01/03/25 11:34 99 18 143/75 01/03/25 09:00 98.4 95 98.4 01/03/25 08:00 Room Air* 0 21 Total Intake and Output 01/02/25 01/02/25 01/03/25 15:00 23:00 07:00 Intake Total 100 ml 550 ml Output Total 700 ml 950 ml Balance -600 ml -400 ml medications Current Medications Medications Dose Ordered Sig/Carmen Route Start Time Stop Time Status Last Admin Dose Admin Metronidazole 100 ml @ 100 mls/hr Q8HR IV 01/01/25 14:00 01/03/25 12:41 100 MLS/HR Hydromorphone HCl 0.5 mg Q2HPRN PRN IV 01/01/25 10:15 01/03/25 11:34 0.5 MG Nitroglycerin 0.4 mg Q5MINP PRN SL 01/01/25 11:00 Morphine Sulfate 2 mg Q30M PRN IV 01/01/25 11:00 Ceftriaxone Sodium 50 ml @ 100 mls/hr DAILY@09 IV 01/02/25 09:00 01/03/25 08:47 100 MLS/HR Pantoprazole Sodium 40 mg DAILY IV 01/02/25 10:00 01/03/25 08:47 40 MG Diagnostic Test (Pha) 1 strip Q6HR 01/01/25 12:00 01/03/25 11:16 1 STRIP Insulin Human Regular Q6HR SC 01/01/25 12:00 01/02/25 05:35 6 UNITS Dextrose 50 ml UD PRN IV 01/01/25 11:30 Potassium Chloride 100 ml @ 50 mls/hr Q2H IV 01/02/25 11:00 01/02/25 14:59 UNV Magnesium Sulfate/ Dextrose 100 ml @ 100 mls/hr Q1HR IV 01/03/25 12:00 01/03/25 13:59 laboratory and microbiology Laboratory Tests 01/03/25 05:27 Test 01/03/25 05:27 Range/Units Serum Glucose 128 H 74-106 mg/dL Problem List 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
[2025-01-03] MEDS: MAGNESIUM SULFATE 1GM/100ML 100 ML IV SCH (14:26)
[2025-01-03] MEDS: POTASSIUM CHL 20MEQ/100ML 100 ML IV SCH (16:53)
[2025-01-04] VITALS (7 sets, daily range): BP systolic 102–139; BP diastolic 54–78; PULSE 85–104; RESP 16–19; TEMP 97.4–98.3; O2SAT 94–97
[2025-01-04 05:40] LABS: Basophils # (auto) 0 10 ^3/uL (0-0.2); Basophils % (auto) 0.6 % (0.0-2.0); Eosinophils # (auto) 0 10 ^3/uL (0-0.8); Eosinophils % (auto) 0.5 % (0.0-7.0); Hematocrit 37.7 % (36.0-46.0); Hemoglobin 12.6 g/dL (12.2-16.2); Lymphocytes # (auto) 1.1 10 ^3/uL (0.4-5.4); Lymphocytes % (auto) 15.3 % (10.0-50.0); Mean Corpuscular Hemoglobin 28.6 pg (28.0-32.0); Mean Corpuscular Hgb Conc. 33.4 g/dL (32.0-36.0); Mean Corpuscular Volume 85.7 fL (80.0-100.0); Monocytes # (auto) 0.3 10 ^3/uL (0-1.3); Monocytes % (auto) 4.9 % (0.0-12.0); Neutrophils # (auto) 5.4 10 ^3/uL (1.6-8.6); Neutrophils % (auto) 78.7 % (37.0-80.0); Platelet Count (auto) 180 10^3/uL (140-450); Red Cell Distribution Width 15.4 % (11.8-14.3); White Blood Cell 6.9 10^3/uL (4.4-10.8)
[2025-01-04 06:01] LABS: Anion Gap 16 (5-15); Calcium 9.8 mg/dL (8.7-10.4); Potassium 3.6 mmol/L (3.5-5.1); Sodium 141 mmol/L (136-145)
[2025-01-04 06:03] LABS: Carbon Dioxide 18 mmol/L (20-31); Chloride 107 mmol/L (98-107)
[2025-01-04 06:07] LABS: BUN/Creatinine Ratio 12.5 (10.0-20.0); Magnesium 1.8 mg/dL (1.6-2.6)
[2025-01-04 06:10] LABS: Blood Urea Nitrogen 6 mg/dL (9-23); Glucose 110 mg/dL (74-106)
--- NOTE | 2025-01-04 11:01 | DVHPN2 ---
Subjective Seen and examined at bedside, NGT removed. Patient is passing Flatus+ Changes from previous H/P or p: No Changes Objective Vitals Vital Signs Date Time Temp Pulse Resp B/P (MAP) Pulse Ox O2 Delivery O2 Flow Rate FiO2 01/04/25 10:57 104 18 138/78 01/04/25 09:42 97.9 97 97.9 01/04/25 07:39 Room Air* 0 21 Intake/Output Intake and Output 01/04/25 07:00 Intake Total 1225 ml Output Total 1428 ml Balance -203 ml Intake Oral 200 ml IV Total 1025 ml Output Urine Total 1425 ml Stool Total 3 ml Exam Gen: in bed NAD Cvs: N S1/S2, RRR Resp: Diminished Abd: JEANNIE drain in place Cab Driver: AAO x 4 Medications Current Medications Medications Dose Ordered Sig/Carmen Route Start Time Stop Time Status Last Admin Dose Admin Metronidazole 100 ml @ 100 mls/hr Q8HR IV 01/01/25 14:00 01/04/25 05:44 100 MLS/HR Hydromorphone HCl 0.5 mg Q2HPRN PRN IV 01/01/25 10:15 01/04/25 10:57 0.5 MG Nitroglycerin 0.4 mg Q5MINP PRN SL 01/01/25 11:00 Morphine Sulfate 2 mg Q30M PRN IV 01/01/25 11:00 Ceftriaxone Sodium 50 ml @ 100 mls/hr DAILY@09 IV 01/02/25 09:00 01/04/25 08:41 100 MLS/HR Pantoprazole Sodium 40 mg DAILY IV 01/02/25 10:00 01/04/25 08:41 40 MG Diagnostic Test (Pha) 1 strip Q6HR 01/01/25 12:00 01/04/25 05:41 1 STRIP Insulin Human Regular Q6HR SC 01/01/25 12:00 01/02/25 05:35 6 UNITS Dextrose 50 ml UD PRN IV 01/01/25 11:30 Potassium Chloride 100 ml @ 50 mls/hr Q2H IV 01/02/25 11:00 01/02/25 14:59 UNV Laboratory Results Laboratory Tests 01/04/25 04:31 Chemistry Test 01/04/25 04:31 Calcium Level 9.8 mg/dL (8.7-10.4) Magnesium Level 1.8 mg/dL (1.6-2.6) Urinalysis Test 12/30/24 10:33 Urine Color Yellow (Yellow) Urine Clarity Turbid (Clear) H Urine pH 5.5 (5.0-9.0) Urine Specific [place] 1.020 (1.001-1.035) Urine Protein Trace (Negative) H Urine Ketones Negative (Negative) Urine Blood Negative /uL (Negative) Urine Nitrite 1+ (Negative) H Urine Bilirubin Negative (Negative) Urine Urobilinogen Normal mg/dL (Negative) Urine Leukocyte Esterase 3+ /uL (Negative) Urine RBC 4 /hpf (0 - 4) Urine Microscopic WBC 131 /HPF (0-5) H Urine Squamous Epithelial Cells Few /hpf (<5) Urine Bacteria Many /hpf (None Seen) H Urine Hyaline Casts Few /lpf (0 - 2) Urine Mucus Few (None Seen) Urine Glucose Normal mg/dL (Normal) Assessment/Plan Assessment/Plan * Diabetes mellitus for which the patient is on sliding scale insulin. A1c 6.9 * Chronic systolic heart failure for which she will be monitored for flare-up of CHF, cardio eval, Dr. Galvez * Hypertension- Monitor and adjust meds as needed * UTI for which urine culture will be obtained and she will be placed on IV Rocephin. * Status post exploratory laparotomy for colon cancer- DC NGT, clears * Advanced care planning: The patient is a Full Code-Time spent was 19 minutes. Plan discussed with: Patient My Orders Orders - TESSA AJ MD Procedure Category Date Status Time Discontinue Tele NAVNEET 01/03/25 In Process 11:28 Incentive Spirometry ORDERS 01/03/25 Transmitted Q 1hr 11:40 Date of Service: Jan 04, 2025 Billing Provider: TESSA AJ MD Common Visit Codes: [id number] INP/OBS CARE(HIGH) TESSA AJ MD Jan 04, 2025 11:01
--- NOTE | 2025-01-04 11:32 | DVHPN2 ---
Progress Note Date Seen: Jan 04, 2025 Medical Necessity Reason Pt with a Central, PICC or Fol: No Objective vital signs Vital Sign Date Time Temp Pulse Resp B/P (MAP) Pulse Ox O2 Delivery O2 Flow Rate FiO2 01/04/25 10:57 104 18 138/78 01/04/25 09:42 97.9 97 97.9 01/04/25 07:39 Room Air* 0 21 Total Intake and Output 01/03/25 01/03/25 01/04/25 15:00 23:00 07:00 Intake Total 525 ml 300 ml 400 ml Output Total 1100 ml 328 ml Balance 525 ml -800 ml 72 ml medications Current Medications Medications Dose Ordered Sig/Carmen Route Start Time Stop Time Status Last Admin Dose Admin Metronidazole 100 ml @ 100 mls/hr Q8HR IV 01/01/25 14:00 01/04/25 05:44 100 MLS/HR Hydromorphone HCl 0.5 mg Q2HPRN PRN IV 01/01/25 10:15 01/04/25 10:57 0.5 MG Nitroglycerin 0.4 mg Q5MINP PRN SL 01/01/25 11:00 Morphine Sulfate 2 mg Q30M PRN IV 01/01/25 11:00 Ceftriaxone Sodium 50 ml @ 100 mls/hr DAILY@09 IV 01/02/25 09:00 01/04/25 08:41 100 MLS/HR Pantoprazole Sodium 40 mg DAILY IV 01/02/25 10:00 01/04/25 08:41 40 MG Diagnostic Test (Pha) 1 strip Q6HR 01/01/25 12:00 01/04/25 11:03 1 STRIP Insulin Human Regular Q6HR SC 01/01/25 12:00 01/02/25 05:35 6 UNITS Dextrose 50 ml UD PRN IV 01/01/25 11:30 Potassium Chloride 100 ml @ 50 mls/hr Q2H IV 01/02/25 11:00 01/02/25 14:59 UNV laboratory and microbiology Laboratory Tests 01/04/25 04:31 Test 01/04/25 04:31 Range/Units Serum Glucose 110 H 74-106 mg/dL Problem List/Assessment/Plan Problem List/Assessment/Plan 01/04/25 PASSED FLATUS, IS HUNGRY, ABDOMEN NON DISTENDED WOUND CLEAN, alba DRAINAGE SEROUS, WILL DC NGT AND START CLEAR LIQUIDS Plan discussed with: Patient MARUIZIO PETERSON MD Jan 04, 2025 11:32
[2025-01-05 01:00] VITALS: BP 121/70; PULSE 95; RESP 17; TEMP 97.3; O2SAT 97
[2025-01-05 05:00] VITALS: BP 145/57; PULSE 101; RESP 18; TEMP 97.5; O2SAT 100
[2025-01-05 09:00] VITALS: BP 124/77; PULSE 107; RESP 17; TEMP 97.5; O2SAT 97
--- NOTE | 2025-01-05 09:10 | DVHPN2 ---
Progress Note Date Seen: Jan 05, 2025 Medical Necessity Reason Pt with a Central, PICC or Fol: No Objective vital signs Vital Sign Date Time Temp Pulse Resp B/P (MAP) Pulse Ox O2 Delivery O2 Flow Rate FiO2 01/05/25 05:00 97.5 101 18 145/57 (86) 100 97.5 01/04/25 20:00 Room Air* 0 21 Total Intake and Output 01/04/25 01/04/25 01/05/25 15:00 23:00 07:00 Intake Total 50 ml 400 ml 350 ml Output Total 30 ml Balance 50 ml 370 ml 350 ml medications Current Medications Medications Dose Ordered Sig/Carmen Route Start Time Stop Time Status Last Admin Dose Admin Metronidazole 100 ml @ 100 mls/hr Q8HR IV 01/01/25 14:00 01/05/25 06:32 100 MLS/HR Hydromorphone HCl 0.5 mg Q2HPRN PRN IV 01/01/25 10:15 01/04/25 10:57 0.5 MG Nitroglycerin 0.4 mg Q5MINP PRN SL 01/01/25 11:00 Morphine Sulfate 2 mg Q30M PRN IV 01/01/25 11:00 Ceftriaxone Sodium 50 ml @ 100 mls/hr DAILY@09 IV 01/02/25 09:00 01/05/25 08:40 100 MLS/HR Pantoprazole Sodium 40 mg DAILY IV 01/02/25 10:00 01/05/25 08:40 40 MG Diagnostic Test (Pha) 1 strip Q6HR 01/01/25 12:00 01/05/25 05:25 1 STRIP Insulin Human Regular Q6HR SC 01/01/25 12:00 01/04/25 17:40 3 UNITS Dextrose 50 ml UD PRN IV 01/01/25 11:30 Potassium Chloride 100 ml @ 50 mls/hr Q2H IV 01/02/25 11:00 01/02/25 14:59 UNV laboratory and microbiology Laboratory Tests 01/04/25 04:31 Test 01/04/25 04:31 Range/Units Serum Glucose 110 H 74-106 mg/dL Problem List/Assessment/Plan Problem List/Assessment/Plan 01/04/25 PASSED FLATUS, IS HUNGRY, ABDOMEN NON DISTENDED WOUND CLEAN, alba DRAINAGE SEROUS, WILL DC NGT AND START CLEAR LIQUIDS 01/05/25 passing flatus, having BM's, wound clean and well approximated, abdomen appropriately tender, will advance diet, may shower, cleared for discharge Plan discussed with: Patient Dietary Evaluation Review Recommendations by RD: Protein Supplementation Comments: 1) Initite Ensure Clear qd 2) Encourage optimal PO intake 3) Advance to 60g CCHO cardiac diet when medically feasible 4) Follow-up with gastroenterology, oncology, and cardiology 5) Continue to monitor I&O, labs, and skin integrity Expected Outcomes/Goals: 1) appetite and labs to improve 2) diet to advance 3) f/u in 2-3 days MAURIZIO PETERSON MD Jan 05, 2025 09:10
--- NOTE | 2025-01-05 10:19 | DVHDS2 ---
Discharge Summary Date of Admission Jan 01, 2025 at 10:47 Date of Discharge: Jan 05, 2025 Admitting Diagnosis Laparotomy with right colon resection Labs/Diagnostic Data: Laboratory Results Test 01/05/25 05:22 01/04/25 04:31 01/02/25 04:45 12/30/24 10:33 POC Glucose 130 mg/dl (70-106) White Blood Count 6.9 10^3/uL (4.4-10.8) Red Blood Count 4.40 10^6/uL (4.0-5.20) Hemoglobin 12.6 g/dL (12.2-16.2) Hematocrit 37.7 % (36.0-46.0) Mean Corpuscular Volume 85.7 fL (80.0-100.0) Mean Corpuscular Hemoglobin 28.6 pg (28.0-32.0) Mean Corpuscular Hemoglobin Concent 33.4 g/dL (32.0-36.0) Red Cell Distribution Width 15.4 % (11.8-14.3) Platelet Count 180 10^3/uL (140-450) Mean Platelet Volume 8.4 fL (6.9-10.8) Neutrophils (%) (Auto) 78.7 % (37.0-80.0) Lymphocytes (%) (Auto) 15.3 % (10.0-50.0) Monocytes (%) (Auto) 4.9 % (0.0-12.0) Eosinophils (%) (Auto) 0.5 % (0.0-7.0) Basophils (%) (Auto) 0.6 % (0.0-2.0) Neutrophils # (Auto) 5.4 10 ^3/uL (1.6-8.6) Lymphocytes # (Auto) 1.1 10 ^3/uL (0.4-5.4) Monocytes # (Auto) 0.3 10 ^3/uL (0-1.3) Eosinophils # (Auto) 0 10 ^3/uL (0-0.8) Basophils # (Auto) 0 10 ^3/uL (0-0.2) Nucleated Red Blood Cells 0.0 % Sodium Level 141 mmol/L (136-145) Potassium Level 3.6 mmol/L (3.5-5.1) Chloride Level 107 mmol/L (98-107) Carbon Dioxide Level 18 mmol/L (20-31) Anion Gap 16 (5-15) Blood Urea Nitrogen 6 mg/dL (9-23) Creatinine 0.48 mg/dL (0.550-1.02) Glomerular Filtration Rate Calc 100 mL/min (>90) BUN/Creatinine Ratio 12.5 (10.0-20.0) Serum Glucose 110 mg/dL (74-106) Calcium Level 9.8 mg/dL (8.7-10.4) Magnesium Level 1.8 mg/dL (1.6-2.6) Hemoglobin A1c 6.9 % A1C (<5.7) Total Bilirubin 0.5 mg/dL (0.2-1.0) Aspartate Amino Transferase (AST) 13 U/L (<34) Alanine Aminotransferase (ALT) < 9 U/L (7-40) Alkaline Phosphatase 75 U/L (46-116) Total Protein 5.8 g/dL (5.7-8.2) Albumin 3.8 g/dL (3.2-4.8) Prothrombin Time 10.9 sec (9.3-11.8) Prothrombin Time INR 1.03 (0.9-1.15) Activated Partial Thromboplast Time 27.3 SEC (24.5-34.5) Urine Color Yellow (Yellow) Urine Clarity Turbid (Clear) Urine pH 5.5 (5.0-9.0) Urine Specific [place] 1.020 (1.001-1.035) Urine Protein Trace (Negative) Urine Ketones Negative (Negative) Urine Blood Negative /uL (Negative) Urine Nitrite 1+ (Negative) Urine Bilirubin Negative (Negative) Urine Urobilinogen Normal mg/dL (Negative) Urine Leukocyte Esterase 3+ /uL (Negative) Urine RBC 4 /hpf (0 - 4) Urine Microscopic WBC 131 /HPF (0-5) Urine Squamous Epithelial Cells Few /hpf (<5) Urine Bacteria Many /hpf (None Seen) Urine Hyaline Casts Few /lpf (0 - 2) Urine Mucus Few (None Seen) Urine Glucose Normal mg/dL (Normal) Other Laboratory Tests 01/04/25 04:31 Brief Hx & Hospital Course: The patient is a 74-year-old lady who was admitted after she underwent exploratory laparotomy for colon cancer. Patient tolerated the procedure well, see operative report below. Patient will be discharged home on a FULL LIQUID diet for 1 week then advance as tolerated/slowly. Followup with surgical clinic. 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 SURGEON: Nathan Souza MD RESEARCH AGRICULTURAL ENGINEER: Radames Newton NP ANESTHESIA: General endotracheal. ANESTHESIOLOGIST: Matteo Ruiz MD PROCEDURE: Laparotomy with right colon resection. DESCRIPTION OF PROCEDURE: Under general endotracheal anesthesia with the patient's skin prepped and draped, an incision was made measuring approximately 3 inches in length around the umbilicus in a vertical fashion. The incision was deepened with electrocautery. The peritoneal cavity was entered. The fascia was elevated and digital exploration revealed adhesions between the omentum and the anterior abdominal wall. These were lysed sharply. At this point, the viscera were displaced so as to be able to visualize the tinea of the right colon. This was grabbed with a Bee forceps and placed on tension. The right colon was mobilized by incision along the white line of [place] and the distal ileum was mobilized. The distal ileum was mobilized sufficiently to divide the bowel with a INOCENCIO stapler. The mesentery was divided between clamps and ligated. At this point, the cecum and ascending colon were mobilized toward the midline. The mesentery was divided between clamps. The ascending colon section just underneath the hepatic flexure was transected with a INOCENCIO stapler. Following division of the mesentery, the cecum and ascending colon specimen were taken to a separate station in the operating room and the specimen was opened in order to assure presence of the tumor within the cecum. The inspection visualized the tubulovillous adenoma within the lumen and the specimen was submitted for histopathologic examination. Gloves were changed at this point and the bowel was brought into approximation and the distal ileum was anastomosed to the remaining ascending colon in a [id number] fashion using 3-0 Prolene for the outer layer and 3-0 Monocryl for the inner layer. The edges of the mucosa were swapped with Betadine prior to termination of the anastomosis. The anastomosis was tested for water tightness, which indeed was accomplished by palpation and visual inspection. The patient's mesenteric defect was approximated using 2-0 Monocryl suture. The bowel returned back into its normal anatomical position. The abdomen was profusely irrigated. Irrigant was aspirated and the peritoneal cavity was drained by means of a 10-mm Edmond-Cardoso drain, which was exteriorized separately and secured with a 2-0 nylon suture. Following assurance of complete hemostasis and report of an accurate needle and sponge counts, the midline fascia was approximated after approximating the peritoneum with a 2-0 Monocryl suture. The fascia was approximated using #1 double-stranded PDS suture. Subcutaneous tissues were approximated and the skin was approximated using metallic skin eloy. The patient remained in stable condition throughout the procedure, left the operating room following an accurate needle and sponge count. Her family was thoroughly informed in the waiting area. Condition at Discharge: Stable Final Diagnosis/Problems List Laparotomy with right colon resection due to Tubulovillous adenoma in the cecum Discharge Disposition: Home Discharge Instruct/Medications Diet: See Comment Diet comment: Full liquid diet for 1 week, then advance slowly Activity: Light activity Follow Up/Referral: Dr. Souza in [address] Sarkar on Monday at 10AM [address] clinic Discharge Statement: "Patient was advised to return to the ER or call 911 if any headaches, dizziness, shortness of breath, chest pain, abdominal pain, bleeding, fevers, or worsening of medical condition. Patient was counseled about treatment plan, medications, possible side effects, patientverbalized understanding. All questions were answered to the best of my ability. This discharge took greater then 30 minutes in planning, reviewing documentation, counseling the patient, and discussing with other team members." ASSESSMENT ASSESSMENT Assessment Date of Service: Jan 05, 2025 Billing Provider: TESSA AJ MD Common Visit Codes: [id number] DISCH DAY >30min TESSA AJ MD Jan 05, 2025 10:19
[2025-01-05 13:16] VITALS: BP 129/71; PULSE 114; RESP 16; TEMP 97.4; O2SAT 100
--- NOTE | 2025-01-06 12:06 | DVHPN2 ---
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 NO COMPLICATION HYPONATREMIA HX OF CAD S/P PTCA STENT OF LAD STENT THROMBOSIS OF LAD WITH FAILED REVASCULARIZATION ECHO EF 60% DIABETES VASCULOPATHY vital signs Vital Sign Date Time Temp Pulse Resp B/P (MAP) Pulse Ox O2 Delivery O2 Flow Rate FiO2 01/05/25 13:16 97.4 114 16 129/71 (90) 100 97.4 01/05/25 08:00 Room Air* 0 21 Total Intake and Output 01/05/25 01/05/25 01/06/25 15:00 23:00 07:00 Intake Total 250 ml Output Total 30 ml Balance 220 ml medications Current Medications Medications Dose Ordered Sig/Carmen Route Start Time Stop Time Status Last Admin Dose Admin Potassium Chloride 100 ml @ 50 mls/hr Q2H IV 01/02/25 11:00 01/02/25 14:59 UNV laboratory and microbiology Laboratory Tests 01/04/25 04:31 Test 01/04/25 04:31 Range/Units Serum Glucose 110 H 74-106 mg/dL Problem List S/P 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 NO COMPLICATION HYPONATREMIA HX OF CAD S/P PTCA STENT OF LAD STENT THROMBOSIS OF LAD WITH FAILED REVASCULARIZATION ECHO EF 60% DIABETES VASCULOPATHY Assessment/Plan CARDIAC STATUS STABLE CORRECT HYPOKALEMIA STILL HYPOKALEMIC GIVE ANOTHER 40 MEQ K RIDER Dietary Evaluation Review Recommendations by RD: Protein Supplementation Comments: 1) Initite Ensure Clear qd 2) Encourage optimal PO intake 3) Advance to 60g CCHO cardiac diet when medically feasible 4) Follow-up with gastroenterology, oncology, and cardiology 5) Continue to monitor I&O, labs, and skin integrity Expected Outcomes/Goals: 1) appetite and labs to improve 2) diet to advance 3) f/u in 2-3 days Plan discussed with: Patient LIYA HOPSON MD Jan 06, 2025 12:06
== END 2025-01-05 13:45 | disposition home or self-care (01) | DRG 330 ==
LOC: SUR 06:28 → OVERFLOW 10:47 → TELE-CENTR 14:49 → CENTRAL 01-03 23:26
PROVIDERS: ADMIT Internal Medicine; ATTEND Internal Medicine
PROC: 0DTF0ZZ Resection of Right Large Intestine, Open Approach (ICD-10-PCS; principal; 2025-01-01 08:12)
DX: C18.0 Malignant neoplasm of cecum (principal); N39.0 Urinary tract infection, site not specified; E11.9 Type 2 diabetes mellitus without complications; I11.0 Hypertensive heart disease with heart failure; E78.5 Hyperlipidemia, unspecified; E87.6 Hypokalemia; I25.10 Atherosclerotic heart disease of native coronary artery without angina pectoris; B35.8 Other dermatophytoses; K66.0 Peritoneal adhesions (postprocedural) (postinfection); Z88.5 Allergy status to narcotic agent; Z98.61 Coronary angioplasty status; Z79.899 Other long term (current) drug therapy
CPT/HCPCS: 36415; 71045; 80048; 80053; 81001; 82962; 83036; 83735; 85025; 85610; 85730; 86850; 86900; 86901; 97110; 97116; 97163; 97530; G0378; J0131; J0171; J1100; J1815; J1885; J2003; J2405; J2470; J2704; J3480; J3490

== ENCOUNTER 2025-02-19 07:32 | Outpatient (CLI) | payer BC ==
[2025-02-19 08:23] LABS: Urine Protein, UAD Negative (Negative)
[2025-02-19 08:40] LABS: Hematocrit 35.7 % (36.0-46.0); Hemoglobin 11.9 g/dL (12.2-16.2); Mean Corpuscular Hemoglobin 29.1 pg (28.0-32.0); Mean Corpuscular Volume 86.9 fL (80.0-100.0); Nucleated Red Blood Cells % 0.0 %
[2025-02-19 08:45] LABS: Alkaline Phosphatase 89 U/L (46-116); Anion Gap 9 (5-15); BUN/Creatinine Ratio 14.8 (10.0-20.0); Calcium 9.4 mg/dL (8.7-10.4); Carbon Dioxide 28 mmol/L (20-31); Chloride 107 mmol/L (98-107); Potassium 3.6 mmol/L (3.5-5.1); Sodium 144 mmol/L (136-145); Total Protein 6.4 g/dL (5.7-8.2)
[2025-02-19 08:46] LABS: Albumin 4.1 g/dL (3.2-4.8); Bilirubin, Total 0.5 mg/dL (0.2-1.0)
[2025-02-19 08:50] LABS: Alanine Aminotransferase < 9 U/L (7-40); Blood Urea Nitrogen 9 mg/dL (9-23); Free T4 (Free Thyroxine) 1.24 ng/dL (0.89-1.76); Glucose 133 mg/dL (74-106)
[2025-02-19 10:07] LABS: Triglycerides 91 mg/dL (< 150)
[2025-02-19 10:09] LABS: Cholesterol 136 mg/dL (< 200); HDL Cholesterol 52 mg/dL (40-59)
== END 2025-02-19 17:00 | disposition home or self-care (01) ==
LOC: LAB 07:32
PROVIDERS: ATTEND Internal Medicine
DX: I10 Essential (primary) hypertension (principal); E11.9 Type 2 diabetes mellitus without complications
CPT/HCPCS: 36415; 80053; 80061; 81001; 82043; 82607; 83036; 84439; 84443; 85025; 85652

== ENCOUNTER 2025-05-05 09:52 | Outpatient (CLI) | payer BC ==
[2025-05-05 10:09] VITALS: BP 134/60; PULSE 65; RESP 16; O2SAT 98
[2025-05-05 10:24] VITALS: BP 118/56; PULSE 65; RESP 16; O2SAT 98
[2025-05-05] MEDS ORDERED: NITR0.4S29 SL (15:06)
[2025-05-05] MEDS ORDERED: POM (15:06)
[2025-05-05] MEDS ORDERED: MAGN100C5 PO (15:06)
[2025-05-05] MEDS ORDERED: INSUINJ37 SC (15:06)
[2025-05-05] MEDS ORDERED: ATOR40TA52 PO (15:06)
== END 2025-05-05 17:00 | disposition home or self-care (01) ==
LOC: CHF HDHVI 09:52
PROVIDERS: ATTEND Internal Medicine Cardiovascular Disease
DX: Z01.810 Encounter for preprocedural cardiovascular examination (principal); R07.9 Chest pain, unspecified
CPT/HCPCS: 93005; G0463

== ENCOUNTER 2025-05-08 06:55 | Day surgery (SDC) | payer BC ==
[2025-05-05 11:40] LABS: Hematocrit 37.0 % (36.0-46.0); Hemoglobin 12.2 g/dL (12.2-16.2); Mean Corpuscular Hemoglobin 27.1 pg (28.0-32.0); Mean Corpuscular Volume 82.1 fL (80.0-100.0); Nucleated Red Blood Cells % 0.1 %
[2025-05-05 11:46] LABS: INR 1.03 (0.9-1.15); Partial Thromboplastin Time 26.7 SEC (24.5-34.5); Prothrombin Time 10.9 sec (9.3-11.8)
[2025-05-05 12:11] LABS: Anion Gap 8 (5-15); Carbon Dioxide 30 mmol/L (20-31); Chloride 105 mmol/L (98-107); Potassium 4.8 mmol/L (3.5-5.1); Sodium 143 mmol/L (136-145)
[2025-05-05 12:12] LABS: Calcium 9.2 mg/dL (8.7-10.4)
[2025-05-05 12:17] LABS: BUN/Creatinine Ratio 12.1 (10.0-20.0)
[2025-05-05 12:33] LABS: Blood Urea Nitrogen 8 mg/dL (9-23); Glucose 125 mg/dL (74-106)
[2025-05-08] VITALS (8 sets, daily range): BP systolic 121–144; BP diastolic 66–78; PULSE 71–83; RESP 11–15; O2SAT 95–99
[~2025-05-08] VITALS: Ht 157.5 cm; Wt 59.9 kg
[~2025-05-08 06:55] MED LIST changes: -ATOR-47 PO; +ATOR40TA52 PO; +INSUINJ37 SC; +MAGN100C5 PO; -METF-372 PO; +NITR0.4S29 SL; +POM; -SITA50TA PO
[2025-05-08] MEDS ORDERED: IODIXANOL 320MG/ML 100ML BTL IV ONE (07:29)
[2025-05-08] MEDS ORDERED: fentaNYL CITRATE 100 MCG/2 ML VL ONE (08:04)
[2025-05-08] MEDS ORDERED: ANGIOMAX 250 MG VIAL IV ONE (08:04)
[2025-05-08] MEDS ORDERED: SODIUM CHL 0.9% 50 ML ONE (08:04)
[2025-05-08] MEDS ORDERED: LIDOCAINE 2%HCL (LOCAL ANESTH.) INJ 20ML MDV ONE (08:04)
[2025-05-08] MEDS ORDERED: MIDAZOLAM HCL 2MG/2ML 2ml VIAL (1mg/ml) ONE (08:04)
[2025-05-08] MEDS ORDERED: CLOPIDOGREL BISULFATE 75 MG TAB ONE (09:02)
--- NOTE | 2025-05-08 09:28 | DVHHP ---
ADMIT DATE: 05/08/2025 HISTORY OF PRESENT ILLNESS: The patient with history of hypertension, history of diabetes, hyperlipidemia, history of diabetic neuropathy, vasculopathy, nephropathy, now with abnormal chest pain. She had previous stent placed in the LAD territory. Now, the patient is having abnormal stress test as well as increasing shortness of breath. Pertinent medical history is also significant for hypertension, hyperlipidemia, history of myocardial infarction in the past, history of angioplasty with stent placement x 4 in the last 5 years She denies any syncopal episodes. No melena, hematochezia, hematemesis, or hemoptysis. No history of tobacco use. No history of alcohol use. She denies any fever, chills, melena, hematochezia, hematemesis, hemoptysis or hematuria. Denies any history of inflammatory bowel disease or irritable bowel syndrome. Denies any history of connective tissue disease. Denies any COPD or asthma-like symptoms as well. She does have mild symptoms of diastolic and systolic heart failure that are chronic in nature. SOCIAL HISTORY: Unremarkable. CURRENT MEDICATIONS: Include metoprolol, glyburide, Plavix, atorvastatin, lisinopril, as well as insulin. PHYSICAL EXAMINATION: VITAL SIGNS: Blood pressure is 144/80, pulse 70, O2 saturation 98% on room air. HEENT: Pupils are reactive. Funduscopic exam is no AV nicking, no exudates, no papilledema. Sclerae anicteric. Extraocular muscles are intact. Tympanic membranes are negative. Oral mucosa moist. Posterior pharynx without any exudates. CARDIOVASCULAR: Regular rate without S3, without S4. PULMONARY: Clear to auscultation. No rhonchi, no wheezes, no egophony. ABDOMEN: Soft. Normal bowel sounds. Stool guaiac negative. Liver approximately 5 cm by percussion. NEUROLOGIC: The patient is intact. EXTREMITIES: 1+ pulses bilaterally. ASSESSMENT AND PLAN: Thus, the patient with diabetes, previous history of myocardial infarction, history of multivessel stent placement, now with chest pain, abnormal stress test, now to undergo coronary angiography. Further recommendations after the angiogram. Lenny Arceo MD SA/CAPO TID: [id number] RECEIPT: [id number]
--- NOTE | 2025-05-08 10:37 | DVHOP ---
DATE OF SURGERY: 05/08/2025 PROCEDURES PERFORMED: * Selective left and right coronary angiography and ventriculogram. * FFR of the first diagonal. * Angioplasty with stent placement of the first diagonal with a 2.5 x 30 mm [place] stent. FFR of the diagonal 0.55 and the patient with Shockwave thrombectomy of the first diagonal with a 2.5 x 12 mm thrombectomy Shockwave catheter. Less than 10% residual stenosis. * The patient underwent conscious sedation as well. DESCRIPTION OF PROCEDURE: The patient was prepped and draped in sterile condition. 1% Xylocaine was used to anesthetize the right groin. Using a Cook needle, the right femoral artery was engaged with Seldinger technique. A 6-Kazakh sheath was introduced in the right femoral artery. Using a 6-Kazakh JL4 catheter, 6-Kazakh JR4 catheter, selective left and right coronary angiographies were performed. Using a 6-Kazakh pigtail catheter, ventriculogram was done. Following the ventriculogram, the 6-Kazakh diagnostic system was exchanged for a 6-Kazakh interventional system using a 6-Kazakh XB 3.5 guide catheter. The left main was cannulated. It was a short left main giving branches to the diagonal and circumflex. A support wire was placed into the circumflex artery, a run-through wire, and a ChoICE PT wire was placed into the distal first diagonal. The left anterior descending artery was occluded. The right coronary artery is a large dominant vessel, was patent, giving collateral circulation to the LAD territory. Left ventricular function was preserved with estimated EF of around 55%-60% with LVEDP of 15-20 mmHg with no gradient across the aortic valve. The first diagonal artery had a ____ 99% narrowing. The ____ and entire length of the LAD was not visualized antegrade, but retrograde to the RCA, we were able to see the LAD with collateral circulation, however. The patient underwent revascularization of the first diagonal. We initially thrombectomized using a 2.5 x 12 mm thrombectomy Shockwave catheter followed by stent placement with a 2.5 x 30 mm [place] stent. Distal to the stent, there was a little bit of residual narrowing or spasm. It was then ballooned using a 2.5 x 20 mm E[place] balloon. There were no complications. The patient tolerated the procedure well. RESULTS: * Left main was patent. * Left anterior descending artery was occluded distal to the first diagonal. * First diagonal had a 99% narrowing, status post thrombectomy, angioplasty and stent placement following FFR, which read 0.54. The patient had a stent placed with a 2.5 x 30 mm stent with less than 10% residual stenosis. * Circumflex artery had moderate diffuse disease without any flow-restrictive lesion. * Right coronary artery status post recent angioplasty with stent placement was still patent with about a 20% narrowing of the ostium, otherwise unremarkable. RECOMMENDATIONS: At this time, continue conservative medical management. The patient's EF is preserved. Repeat echo should be done in approximately a week following intervention. Lenny Arceo MD SA/ZENAIDA/PHUC TID: [id number] RECEIPT: [id number]
--- NOTE | 2025-05-09 09:31 | DVHDS ---
DATE OF DISCHARGE: 05/08/2025 DISCHARGE DIAGNOSES: The patient underwent successful revascularization of the diagonal artery with stent placement. However, the patient's LAD is occluded distal to the takeoff of the first diagonal. Circumflex artery, mild diffuse disease without any flow restrictive lesion. Right coronary artery, large dominant vessel without any flow restrictive lesion. The patient is to continue all current medication. Antiplatelet therapy will be maintained. We will continue to follow the patient. Lenny Arceo MD SA/EKT TID: [id number] RECEIPT: [id number]
== END 2025-05-08 11:36 | disposition home or self-care (01) ==
LOC: CATH 06:55
PROVIDERS: ATTEND Internal Medicine Cardiovascular Disease
DX: R94.39 Abnormal result of other cardiovascular function study (principal); I25.118 Atherosclerotic heart disease of native coronary artery with other forms of angina pectoris; I10 Essential (primary) hypertension; I25.2 Old myocardial infarction; E11.21 Type 2 diabetes mellitus with diabetic nephropathy; E11.40 Type 2 diabetes mellitus with diabetic neuropathy, unspecified; E78.5 Hyperlipidemia, unspecified; Z79.4 Long term (current) use of insulin; Z79.899 Other long term (current) drug therapy; Z95.5 Presence of coronary angioplasty implant and graft; Z98.51 Tubal ligation status; Z90.710 Acquired absence of both cervix and uterus; Z88.5 Allergy status to narcotic agent; Z83.3 Family history of diabetes mellitus; Z82.49 Family history of ischemic heart disease and other diseases of the circulatory system
CPT/HCPCS: 0523T; 36415; 80048; 85025; 85610; 85730; 92972; 92973; 93458; C1725; C1760; C1769; C1874; C1887; C1894; C9600; J0583; J1644; J2250; J3010; J7030; Q9967; 99152; 99153